=== PATIENT | female | born 1970 | race Caucasian/White ===

== ENCOUNTER 2020-03-21 10:21 | Outpatient (CLI) | payer OTHER, SELFPAY ==
[2020-03-21 11:07] LABS: Hematocrit 34.5 % (37.0-47.0); Hemoglobin 10.4 g/dL (12.0-15.0); Immature Platelet Fraction Pct 3.6 % (0.9-11.2); Mean Corpuscular HGB Conc 30.1 g/dl (32-36); Mean Corpuscular Hemoglobin 19.4 pg (26-34); Mean Corpuscular Volume 64.4 fl (80-100); Mean Platelet Volume 11.3 fl (7.4-10.4); Platelet Count Result 356 k/mm3 (150-375); Red Blood Count 5.36 M/mm3 (4.2-5.4); Red Cell Distribution Width 21.3 % (11.5-14.5); White Blood Count 8.7 K/mm3 (4.5-10.0)
[2020-03-21 11:17] LABS: Hemoglobin A1C 5.7 % (<5.7)
[2020-03-21 11:18] LABS: Alanine Aminotransferase 14 U/L (4-35); Albumin Level 3.7 g/dL (3.5-5.1); Alkaline Phosphatase 110 U/L (38-126); Aspartate Amino Transferase 20 U/L (14-36); Bilirubin,Total 0.7 mg/dL (0.2-1.3); Blood Urea Nitrogen 12 mg/dL (7-17); Calcium 8.6 mg/dL (8.4-10.2); Carbon Dioxide 30 mmol/L (22-30); Chloride 102 mmol/L (98-107); Cholesterol 139 mg/dL (0-200); Estimated Glomerular Filt Rate > 60; Glucose 100 mg/dL (65-105); HDL Direct 48 mg/dL; Potassium 4.1 mmol/L (3.4-5.0); Sodium 134 mmol/L (137-145); Triglycerides 108 mg/dL (<150)
[2020-03-21 11:28] LABS: LDL Cholesterol Direct 69 mg/dL
== END 2020-03-21 10:22 | disposition home or self-care (01) ==
LOC: ANHLAB 10:23
PROVIDERS: PCP Family Medicine; Visit Provider Nurse Practitioner Family
DX: I10 Essential (primary) hypertension (principal); R73.03 Prediabetes
CPT/HCPCS: 36415; 80053; 80061; 83036; 85027; 85055

== ENCOUNTER 2020-10-12 08:54 | Outpatient (CLI) | payer OTHER, SELFPAY ==
[2020-10-12 09:13] LABS: Hematocrit 36.8 % (37.0-47.0); Hemoglobin 11.1 g/dL (12.0-15.0); Immature Platelet Fraction Pct 4.1 % (0.9-11.2); Mean Corpuscular HGB Conc 30.2 g/dl (32-36); Mean Corpuscular Volume 62.9 fl (80-100); Platelet Count Result 407 k/mm3 (150-375); Red Blood Count 5.85 M/mm3 (4.2-5.4); Red Cell Distribution Width 22.5 % (11.5-14.5); White Blood Count 9.5 K/mm3 (4.5-10.0)
[2020-10-12 09:22] LABS: Hemoglobin A1C 5.4 % (<5.7)
[2020-10-12 09:26] LABS: Alanine Aminotransferase 14 U/L (4-35); Albumin Level 3.8 g/dL (3.5-5.1); Alkaline Phosphatase 96 U/L (38-126); Anion Gap 4 mmol/L (8-16); Aspartate Amino Transferase 30 U/L (14-36); Bilirubin,Total 0.6 mg/dL (0.2-1.3); Blood Urea Nitrogen 15 mg/dL (7-17); Calcium 9.2 mg/dL (8.4-10.2); Carbon Dioxide 30 mmol/L (22-30); Chloride 103 mmol/L (98-107); Cholesterol 151 mg/dL (0-200); Estimated Glomerular Filt Rate > 60; Glucose 102 mg/dL (65-105); HDL Direct 47 mg/dL; Potassium 4.2 mmol/L (3.4-5.0); Sodium 137 mmol/L (137-145); Triglycerides 171 mg/dL (<150)
[2020-10-12 09:37] LABS: LDL Cholesterol Direct 75 mg/dL
== END 2020-10-12 08:55 | disposition home or self-care (01) ==
LOC: ANHLAB 08:55
PROVIDERS: PCP Family Medicine; Visit Provider Nurse Practitioner Family
DX: E78.5 Hyperlipidemia, unspecified (principal); I10 Essential (primary) hypertension; R73.03 Prediabetes
CPT/HCPCS: 36415; 80053; 80061; 83036; 85027; 85055

== ENCOUNTER 2021-05-02 11:24 | Outpatient (CLI) | payer OTHER, SELFPAY ==
[2021-05-02 11:42] LABS: Basophils Absolute Auto 0.1 K/mm3 (0.0-0.1); Eosinophils Absolute Auto 0.4 K/mm3 (0-0.3); Eosinophils Percent Auto 3.3 % (0-4.4); Hematocrit 34.5 % (37.0-47.0); Hemoglobin 10.2 g/dL (12.0-15.0); Immature Granulocyte Absolute 0.03 K/mm3 (0.00-0.031); Immature Granulocyte Percent A 0.3 % (0-0.5); Immature Platelet Fraction Pct 4.3 % (0.9-11.2); Lymphocytes Absolute Auto 2.15 K/mm3 (0.9-3.2); Lymphocytes Percent Auto 19.6 % (18.3-44.2); Mean Corpuscular HGB Conc 29.6 g/dl (32-36); Mean Corpuscular Volume 60.8 fl (80-100); Monocytes Absolute Auto 0.6 K/mm3 (0.1-0.6); Monocytes Percent Auto 5.1 % (2.6-8.5); Neutrophils Absolute Auto 7.8 K/mm3 (1.3-6.7); Neutrophils Percent Auto 70.7 % (45.5-73.1); Platelet Count Result 406 k/mm3 (150-375); Red Blood Count 5.67 M/mm3 (4.2-5.4); Red Cell Distribution Width 22.1 % (11.5-14.5)
[2021-05-02 11:52] LABS: Alanine Aminotransferase 14 U/L (4-35); Albumin Level 3.9 g/dL (3.5-5.1); Alkaline Phosphatase 99 U/L (38-126); Anion Gap 6 mmol/L (8-16); Aspartate Amino Transferase 20 U/L (14-36); Bilirubin,Total 0.6 mg/dL (0.2-1.3); Blood Urea Nitrogen 12 mg/dL (7-17); Calcium 9.1 mg/dL (8.4-10.2); Carbon Dioxide 27 mmol/L (22-30); Chloride 104 mmol/L (98-107); Estimated Glomerular Filt Rate > 60; Glucose 90 mg/dL (65-110); Potassium 4.5 mmol/L (3.4-5.0); Sodium 137 mmol/L (137-145)
[2021-05-02 12:01] LABS: Hemoglobin A1C 5.6 % (<5.7)
[2021-05-02 12:11] LABS: Anisocytosis 1+ (NORMAL)
[2021-05-02 12:12] LABS: Ovalocytes 1+ (NORMAL)
[2021-05-02 12:13] LABS: Poikilocytosis 1+ (NORMAL)
== END 2021-05-02 11:25 | disposition home or self-care (01) ==
LOC: ANHLAB 11:27
PROVIDERS: PCP Family Medicine; Visit Provider Nurse Practitioner Family
DX: R73.03 Prediabetes (principal); I10 Essential (primary) hypertension
CPT/HCPCS: 36415; 80053; 83036; 85025; 85055

== ENCOUNTER → 2021-10-27 09:25 | Outpatient (CLI) | payer OTHER, SELFPAY ==
--- NOTE | ~2021-10-27 | XR_ITS ---
XR knee RT 2V DATE: 10/27/2021 10:10 INDICATION: Right knee pain TECHNIQUE: Standing AP and lateral views COMPARISON: None FINDINGS: There is tricompartment osteoarthritis, most severe at the medial compartment where there i s severe loss of joint space. There is periarticular spurring at the patellofemoral and medial and la teral compartments. No fracture or dislocation or joint effusion, periosteal reaction or bone destruction, radiopaque int ra-articular loose body or chondrocalcinosis. IMPRESSION: Tricompartment osteoarthritis, most severe at the medial compartment Reviewed, dictated and finalized at location A. IT CONTROL ASSISTANT IMPRESSION: Tricompartment osteoarthritis, most severe at the medial compartmen t
== END ==
PROVIDERS: PCP Nurse Practitioner Family; Visit Provider Nurse Practitioner Family
DX: M17.11 Unilateral primary osteoarthritis, right knee (principal)
CPT/HCPCS: 73560

== ENCOUNTER 2021-10-28 07:34 | Outpatient (CLI) | payer OTHER, SELFPAY ==
[2021-10-28 07:54] LABS: Basophils Absolute Auto 0.1 K/mm3 (0.0-0.1); Basophils Percent Auto 1.2 % (0.2-1.2); Eosinophils Absolute Auto 0.5 K/mm3 (0-0.3); Eosinophils Percent Auto 5.3 % (0-4.4); Hematocrit 31.7 % (37.0-47.0); Hemoglobin 9.5 g/dL (12.0-15.0); Immature Granulocyte Absolute 0.03 K/mm3 (0.00-0.031); Immature Granulocyte Percent A 0.3 % (0-0.5); Lymphocytes Absolute Auto 2.46 K/mm3 (0.9-3.2); Monocytes Absolute Auto 0.8 K/mm3 (0.1-0.6); Monocytes Percent Auto 7.9 % (2.6-8.5); Neutrophils Absolute Auto 5.9 K/mm3 (1.3-6.7); Neutrophils Percent Auto 60.3 % (45.5-73.1); Platelet Count Result 457 k/mm3 (150-375); Red Blood Count 5.28 M/mm3 (4.2-5.4); Red Cell Distribution Width 22.9 % (11.5-14.5); White Blood Count 9.8 K/mm3 (4.5-10.0)
[2021-10-28 08:04] LABS: Alanine Aminotransferase 14 U/L (4-35); Albumin Level 3.7 g/dL (3.5-5.1); Alkaline Phosphatase 98 U/L (38-126); Anion Gap 8 mmol/L (8-16); Aspartate Amino Transferase 21 U/L (14-36); Bilirubin,Total 0.4 mg/dL (0.2-1.3); Blood Urea Nitrogen 16 mg/dL (7-17); Calcium 9.1 mg/dL (8.4-10.2); Carbon Dioxide 27 mmol/L (22-30); Chloride 102 mmol/L (98-107); Cholesterol 141 mg/dL (0-200); Estimated Glomerular Filt Rate > 60; Glucose 112 mg/dL (65-110); HDL Direct 47 mg/dL; Potassium 4.2 mmol/L (3.4-5.0); Sodium 137 mmol/L (137-145); Triglycerides 107 mg/dL (<150)
[2021-10-28 08:16] LABS: Iron 32 ug/dL (37-170); LDL Cholesterol Direct 75 mg/dL
[2021-10-28 08:44] LABS: Platelet Estimate Adequate (Adequate)
[2021-10-28 08:45] LABS: Anisocytosis 2+ (NORMAL); Ovalocytes 2+ (NORMAL)
== END 2021-10-28 07:35 | disposition home or self-care (01) ==
PROVIDERS: PCP Nurse Practitioner Family; Visit Provider Nurse Practitioner Family
DX: D56.9 Thalassemia, unspecified (principal); E78.5 Hyperlipidemia, unspecified; I10 Essential (primary) hypertension
CPT/HCPCS: 36415; 80053; 80061; 83540; 85025

== ENCOUNTER → 2021-10-31 12:22 | Outpatient (CLI) | payer OTHER, SELFPAY ==
--- NOTE | ~2021-10-31 | MM_ITS ---
EXAMINATION: MM screening [facility] BI w gregory HISTORY: Screening mammogram TECHNIQUE: Craniocaudal and mediolateral oblique 3-D tomosynthesis images were obtained and synthetic 2-D images were generated. CAD analysis was submitted and interpreted. COMPARISON: 09/04/2016, 06/09/2015 BREAST PARENCHYMAL COMPOSITION: There are scattered areas of fibroglandular density. FINDINGS: There is no evidence of suspicious mass, calcification, or architectural distortion to sugg est malignancy in either breast. There has been no suspicious interval change. IMPRESSION: 1. No mammographic evidence of malignancy. 2. Recommend routine screening mammography in one year. BI-RADS Category 1: Negative Reviewed, dictated and finalized at location A. FOOD SHIFT LEAD
== END ==
PROVIDERS: PCP Nurse Practitioner Family; Visit Provider Obstetrics & Gynecology
DX: Z12.31 Encounter for screening mammogram for malignant neoplasm of breast (principal)
CPT/HCPCS: 77063; 77067

== ENCOUNTER 2022-01-25 08:13 | Outpatient (CLI) | payer OTHER, SELFPAY ==
--- NOTE | 2022-01-25 09:07 | ECG_ITS ---
Measurements Intervals [place] Rate: 55 P: 26 WY: 154 QRS: 27 QRSD: 85 T: 34 QT: 426 QTc: 411 Interpretive Statements SINUS BRADYCARDIA LOW QRS VOLTAGE IN PRECORDIAL LEADS [QRS DEFLECTION < 1.0 mV IN CHEST LEADS] BORDERLINE ECG COMPARED TO ECG 05/20/2019 09:41:30 HEART RATE HAS DECREASED AND PVCS NOT APPRECIATED Electronically Signed On 01-25-2022 16:54:35 CDT by Jhonny Mcgehe M.D.
[2022-01-25 09:39] LABS: Appearance Urine Clear (Clear); Bilirubin Urine Negative (Negative); Blood Urine 1+ (Negative); Color Urine Yellow (Yellow); Glucose Urine UA Negative (Negative); Ketones Urine Negative (Negative); Leukocyte Esterase Ur Negative LEU/UL (Negative); Nitrate Urine Negative (Negative); Protein Urine Negative (Negative); Specific Grav Ur 1.015 (1.001-1.035); Urobilinogen Urine 0.2 mg/dL (<2.0)
[2022-01-25 09:40] LABS: Basophils Absolute Auto 0.1 K/mm3 (0.0-0.1); Basophils Percent Auto 1.3 % (0.2-1.2); Eosinophils Absolute Auto 0.3 K/mm3 (0-0.3); Eosinophils Percent Auto 3.7 % (0-4.4); Hemoglobin 9.7 g/dL (12.0-15.0); Immature Granulocyte Absolute 0.02 K/mm3 (0.00-0.031); Immature Granulocyte Percent A 0.3 % (0-0.5); Immature Platelet Fraction Pct 4.4 % (0.9-11.2); Lymphocytes Absolute Auto 2.01 K/mm3 (0.9-3.2); Lymphocytes Percent Auto 25.5 % (18.3-44.2); Mean Corpuscular HGB Conc 29.4 g/dl (32-36); Mean Corpuscular Hemoglobin 17.9 pg (26-34); Mean Corpuscular Volume 60.9 fl (80-100); Monocytes Absolute Auto 0.7 K/mm3 (0.1-0.6); Monocytes Percent Auto 8.5 % (2.6-8.5); Neutrophils Absolute Auto 4.8 K/mm3 (1.3-6.7); Neutrophils Percent Auto 60.7 % (45.5-73.1); Platelet Count Result 435 k/mm3 (150-375); Red Blood Count 5.42 M/mm3 (4.2-5.4); Red Cell Distribution Width 23.1 % (11.5-14.5); White Blood Count 7.9 K/mm3 (4.5-10.0)
[2022-01-25 09:47] LABS: Albumin Level 3.9 g/dL (3.5-5.1); Anion Gap 7 mmol/L (8-16); Blood Urea Nitrogen 21 mg/dL (7-17); Calcium 9.4 mg/dL (8.4-10.2); Carbon Dioxide 28 mmol/L (22-30); Chloride 100 mmol/L (98-107); Estimated Glomerular Filt Rate > 60; Glucose 101 mg/dL (65-110); Hemoglobin A1C 5.1 % (<5.7); Potassium 4.2 mmol/L (3.4-5.0); Sodium 135 mmol/L (137-145)
[2022-01-25 09:48] LABS: INR 1.1; Prothrombin Time 13.6 Seconds (11.1-14.7)
[2022-01-25 09:49] LABS: Urine Cotinine NEGATIVE
[2022-01-25 09:49] LABS: Partial Thromboplastin Time 28.7 SECONDS (22.3-36.8)
[2022-01-25 09:51] LABS: Bacteria Urine Trace /hpf; Mucus Urine Rare /lpf; WBC Urine 0-3 /hpf
[2022-01-25 09:52] LABS: Add Urine Microscopic? YES
[2022-01-25 10:05] LABS: Hypochromasia 2+ (NORMAL); Platelet Estimate Adequate (Adequate)
[2022-01-25 10:06] LABS: Anisocytosis 2+ (NORMAL); Ovalocytes 2+ (NORMAL); Target Cells 1+ (NORMAL); Tear Drop Cells 1+ (NORMAL)
== END 2022-01-25 08:14 | disposition home or self-care (01) ==
LOC: ANHSURGERY 08:16
PROVIDERS: PCP Nurse Practitioner Family; Visit Provider Orthopaedic Surgery
DX: Z01.818 Encounter for other preprocedural examination (principal); M17.11 Unilateral primary osteoarthritis, right knee
CPT/HCPCS: 80048; 80307; 81001; 82040; 83036; 85025; 85055; 85610; 85730; 86850; 86900; 86901; 87081; 93005

== ENCOUNTER 2022-01-26 12:06 | Outpatient (CLI) | payer OTHER, SELFPAY ==
[2022-01-26 12:48] LABS: Basophils Absolute Auto 0.1 K/mm3 (0.0-0.1); Basophils Percent Auto 1.5 % (0.2-1.2); Eosinophils Absolute Auto 0.2 K/mm3 (0-0.3); Eosinophils Percent Auto 2.7 % (0-4.4); Hematocrit 32.8 % (37.0-47.0); Hemoglobin 9.5 g/dL (12.0-15.0); Immature Granulocyte Absolute 0.02 K/mm3 (0.00-0.031); Immature Granulocyte Percent A 0.3 % (0-0.5); Immature Platelet Fraction Pct 4.1 % (0.9-11.2); Lymphocytes Absolute Auto 2.05 K/mm3 (0.9-3.2); Lymphocytes Percent Auto 26.1 % (18.3-44.2); Mean Corpuscular Hemoglobin 18.1 pg (26-34); Mean Corpuscular Volume 62.4 fl (80-100); Monocytes Absolute Auto 0.6 K/mm3 (0.1-0.6); Monocytes Percent Auto 7.6 % (2.6-8.5); Neutrophils Absolute Auto 4.9 K/mm3 (1.3-6.7); Neutrophils Percent Auto 61.8 % (45.5-73.1); Platelet Count Result 413 k/mm3 (150-375); Red Blood Count 5.26 M/mm3 (4.2-5.4); Red Cell Distribution Width 21.9 % (11.5-14.5); White Blood Count 7.9 K/mm3 (4.5-10.0)
[2022-01-26 12:51] LABS: Platelet Estimate Increased (Adequate)
[2022-01-26 12:53] LABS: Anisocytosis 1+ (NORMAL); Hypochromasia 2+ (NORMAL); Ovalocytes 1+ (NORMAL); Target Cells 1+ (NORMAL)
[2022-01-26 12:54] LABS: Poikilocytosis 2+ (NORMAL)
[2022-01-26 14:19] LABS: Alanine Aminotransferase 19 U/L (4-35); Albumin Level 4.1 g/dL (3.5-5.1); Alkaline Phosphatase 95 U/L (38-126); Anion Gap 7 mmol/L (8-16); Aspartate Amino Transferase 24 U/L (14-36); Bilirubin,Total 0.4 mg/dL (0.2-1.3); Blood Urea Nitrogen 20 mg/dL (7-17); Calcium 9.7 mg/dL (8.4-10.2); Carbon Dioxide 27 mmol/L (22-30); Chloride 103 mmol/L (98-107); Estimated Glomerular Filt Rate > 60; Glucose 100 mg/dL (65-110); Potassium 4.4 mmol/L (3.4-5.0); Sodium 137 mmol/L (137-145)
[2022-01-26 14:23] LABS: Iron 29 ug/dL (37-170)
[2022-01-26 14:38] LABS: Percent Iron Saturation 6 % (20-50)
[2022-01-26 15:06] LABS: Ferritin 4.47 ng/mL (11.1-264)
[2022-01-26 15:27] LABS: Folic Acid > 20.0 ng/mL (2.76->20)
== END 2022-01-26 12:07 | disposition home or self-care (01) ==
PROVIDERS: PCP Nurse Practitioner Family; Visit Provider Internal Medicine Hematology & Oncology
DX: D50.9 Iron deficiency anemia, unspecified (principal)
CPT/HCPCS: 36415; 80053; 81257; 82607; 82728; 82746; 83020; 83540; 83550; 85014; 85018; 85025; 85041; 85055

== ENCOUNTER 2022-02-16 01:45 | Day surgery (SDC) | payer OTHER, SELFPAY ==
--- NOTE | 2022-02-13 11:25 | PM.IMHP ---
H&P: HPI History of Present Illness Date/Time: 02/13/22 11:25 51-year-old 2 para 2 admitted for hysteroscopy and polypectomy. This patient has had fairly heavy bleeding and told me her hemoglobin was in the 6s. And she has known fibroids and on exam in the office a large polyp or fibroid was seen extruding through the cervical os. She is offered hysteroscopic removal as well as dilatation and curettage. I also discussed ablation and her insurance company refuses so this will not be able to be performed. Risks and benefits reviewed including not exclusive of aspiration pneumonia, bleeding, transfusion, perforation injury to bowel, bladder, ureters, or other internal organs with need for open laparotomy. She received the ACOG handout entitled hysteroscopy as well as dilatation curettage respectively. She had all questions answered and asked to proceed Chief Complaint: Vaginal bleeding was pelvic mass Review of Systems Review of Systems: All systems reviewed & are unremarkable except as noted in HPI and below PMFSH Past Medical History Medical History Asthma Depression Hypertension Perioral dermatitis Prediabetes Right knee pain Thalassemia Surgical History Surgical History History of colonoscopy Family History Family History Father Family history of elevated blood lipids Mother Family history of lung cancer Other Asthma Depression Hypertension Social History Social History Smoking status: Unknown if ever smoked Smoking end date: 04/06/86 Alcohol intake: unknown Substance use: current Substance use type: marijuana Other substance usage details: OCCAS MARIJUANA Additional living arrangements comments: [facility] 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 @ [employer] Gender identity (if verbalized by the patient): Female Spiritual care concerns: No Meds Home Medications and Allergies Home Medications Medication Instructions Recorded Confirmed Type escitalopram oxalate 20 mg tablet 20 mg PO QAM 09/25/19 01/25/22 History cholecalciferol (vitamin D3) 50 50 mcg PO DAILY 10/27/21 01/25/22 History mcg (2,000 unit) capsule antiarthritic combination no.2 900 1,800 mg PO DAILY tablet 12/28/21 01/25/22 History mg tablet folic acid 1 mg tablet 1 mg PO DAILY 12/28/21 01/25/22 History amlodipine 2.5 mg PO QAM 01/25/22 01/25/22 History irbesartan-hydrochlorothiazide 1 tablet PO QAM 01/25/22 01/25/22 History norgestimate-ethinyl estradiol 1 tablet PO DAILY 02/09/22 History 0.18 mg/0.215mg/0.25mg-35 mcg(28)tablet Allergies Allergy/AdvReac Type Severity Reaction Status Date / Time animal dander Allergy Unknown Sneezing Verified 02/09/22 14:56 house dust Allergy Unknown Sneezing Verified 02/09/22 14:56 mold Allergy Unknown Unknown Verified 02/09/22 14:56 Exam Const: General: no acute distress Eyes: General: appearance normal, both eyes and all related structures Neck: Neck: supple and no JVD Thyroid: thyroid normal Resp: Effort & Inspection: normal respiratory effort Auscultation: clear to auscultation bilaterally Cardio: Rate: regular rate Rhythm: regular rhythm GI: Inspection: non-distended GI Palp: Yes Soft to palpation, No Tenderness to palpation present (GI) and No Guarding due to palpation present (GI) Auscultation: normal bowel sounds : External Female Exam: normal external appearance Speculum Exam - Vagina: normal appearance of the vagina and vaginal bleeding Speculum Exam - Cervix: Cervical lesion present (Polypoid mass noted extruding through the cervix) Bimanual exam- vagina & uterus: enlarged Skin: General skin exam: no rashes or lesions noted Extrem: General: normal to inspection and no edema
[2022-02-15 09:28] VITALS: BMI 36.0
--- NOTE | 2022-02-15 09:33 | SUR.PREOP ---
Report to the Outpatient Waiting Room, entrance under the green pavilion located off [facility], at time 1030 on date 02/16/22 . OR Time: 1230 . - You and your visitor will be asked a series of questions to screen for COVID 19 for your protection. - Only one visitor is allowed at this time. - The patient visitor is requested to leave or wait in car when not with patient. - A mask is required within the hospital. Patients may have clear liquids (water, carbonated beverages, clear teas, apple juice) until 3 hours prior to surgery with a maximum of 20 ounces. - No food from midnight until time of surgery - Infants may have breast milk until 4 hours before surgery, infant formula 6 hours prior to surgery. - Children will be allowed to drink immediately following surgery. If applicable, please bring a bottle or sippy cup to assist with drinking. Juice, water, soda, and popsicles are readily available. For infants on formula, please bring formula the day of surgery. Pacifiers are allowed. Take the following medications with a SIP of water the morning of surgery: _amlodipine,lexapro Medications to discontinue per physician vitamins Date to take last dose___02/13/22 Please no make-up, nail japanese, hairspray, perfume, deodorant, or body powder the day of surgery. No jewelry (including any body piercings) or valuables the day of surgery, leave them at home. Please take a shower or bath the night before, or the morning of, surgery with an antibacterial soap. Wear comfortable, loose fitting clothing. Children are encouraged to wear pajamas. - Jewelry must be removed prior to entering the operating room. Rings and piercings that are not removed may be cut off. - The hospital will not accept responsibility for valuables. - Please leave all valuables, including medications, at home the day of surgery. If you are going home after surgery, a licensed emergency medical technician/driver must drive you home. - NO public transportation without another adult. - We recommend that an adult stay with you for 24 hours following discharge. - We also recommend that you do not drive, make important decision, drink alcoholic beverages, or take any drugs that were not prescribed by your health care provider for at least 24 hours after your discharge time. For Pediatric surgeries, we recommend two adults accompany the child home (only one inside the building at this time). Follow any additional instructions given to you from your surgeon. If you or anyone in your household have experienced Covid symptoms in the past week, please notify your surgeon or the nurse liaison at the phone number below for possible testing. Telephone instructions given to __edda browne and asked if any additional questions and then verbalized understanding. Patient advised to call surgeon office or pre surgery nurse liaison [phone] if any additional questions.
--- NOTE | 2022-02-16 07:19 | WPDHPUPDATE1 ---
History and Physical Update Update Date/Time: 02/16/22 07:19 History and Physical has been reviewed, including an updated exam of the patient. There are NO changes in the patient's condition. Risks, benefits, and alternatives have been discussed and questions answered. Patient agrees to proceed with procedure.
[2022-02-16 11:30] VITALS: BP 136/84; PULSE 56; RESP 18; TEMP 36.6; O2SAT 100
[2022-02-16] MEDS: LACTATED RINGERS 1,000 ML 30 ML IV CONT (11:30)
[2022-02-16] MEDS: ACETAMINOPHEN 500 MG TABLET 1000 MG PO (11:45)
--- NOTE | 2022-02-16 12:01 | P.PNAN_ITS ---
Anes - Initial Pre Proc Eval Procedure: Operation Date: 02/16/22 12:30 Proposed Procedures p Hysteroscopy, Dilation and Curettage with Polypectomy - Buddy Mackey MD Date/Time: 02/16/22 12:01 Surgeon: Buddy Mackey MD Pre Op Diagnosis: uterine polyp, irregular bleeding Patient Data Age: 51 Gender: F Height: 1.6 m Weight: 92.27 kg Allergies Allergy/AdvReac Type Severity Reaction Status Date / Time animal dander Allergy Mild Sneezing Verified 02/15/22 09:13 house dust Allergy Mild Sneezing Verified 02/15/22 09:13 mold Allergy Mild Watery Eye Verified 02/15/22 09:13 Home Medications Medication Instructions Recorded Confirmed Type escitalopram oxalate 20 mg tablet 20 mg PO QAM 09/25/19 02/15/22 History cholecalciferol (vitamin D3) 50 50 mcg PO DAILY 10/27/21 02/15/22 History mcg (2,000 unit) capsule antiarthritic combination no.2 900 1,800 mg PO DAILY tablet 12/28/21 02/15/22 History mg tablet folic acid 1 mg tablet 1 mg PO DAILY 12/28/21 02/15/22 History amlodipine 2.5 mg PO QAM 01/25/22 02/15/22 History irbesartan-hydrochlorothiazide 1 tablet PO QAM 01/25/22 02/15/22 History hydrocodone-acetaminophen 1 tablet PO Q4H PRN #30 tablet 02/16/22 Rx Patient hx anesthesia problems: none Family hx anesthesia problems: none Results Review: All pre-operative results and documents have been reviewed as part of the pre-operative evaluation. [facility] Past Medical History Medical History Asthma Depression Hypertension Perioral dermatitis Prediabetes Right knee pain Thalassemia Surgical History Surgical History History of colonoscopy Family History Family History Father Family history of elevated blood lipids Mother Family history of lung cancer Other Asthma Depression Hypertension Social History Social History Smoking status: Never smoker Smoking end date: 04/06/86 Alcohol intake: former Substance use: current Substance use type: marijuana Other substance usage details: smoking occasionally Living arrangements: with family Additional living arrangements comments: [place] 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 @ [employer] Gender identity (if verbalized by the patient): Female Spiritual care concerns: No Anes - Eval Final PreProcedure Day of Procedure 02/16/22 12:01 Patient weight: obese Heart: regular rate and rhythm Lungs: clear to auscultation Airway: Mallampati scale class II Neurological: alert and oriented Last oral intake: >/= 8 hours ASA classification: III Emergent: no Anesthetic plan: proceed Anesthesia type and monitoring: general GIVS and standard monitoring Results Review: All pre-operative results and documents have been reviewed as part of the pre-operative evaluation. Informed Consent: The patient's anesthetic plan and its attendant risks and benefits were discussed with the patient/family/POA. Questions were solicited and answers provided to the satisfaction of the patient/family/POA.
[2022-02-16 12:07] LABS: Hematocrit 34.8 % (37.0-47.0); Hemoglobin 10.2 g/dL (12.0-15.0)
--- NOTE | 2022-02-16 13:01 | P.OP_ITS ---
Procedure Note - Detailed Date of Procedure 02/16/22 Pre-op Diagnosis uterine polyp, irregular bleeding Post-op Diagnosis Same Procedure Performed Hysteroscopy/myomectomy/dilatation curettage Surgeon Buddy Mackey MD Anesthesia MAC and Local Indications Sh 51-year-old female with excessive heavy bleeding and no fibroids Findings Multiple endometrial fibroids Description of Procedure The patient was prepped and draped in the normal sterile fashion placed in the dorsal lithotomy position. Under excellent IV sedation weighted speculum placed posterior fornix vagina. Anterior lip of the cervix grasped with single-tooth tenaculum. 2.5cc of 1% xylocaine anesthesia placed at 2, 4, 8, 10:00 a.m. of the cervix. Uterus sounded to 12cm. Serial dilatation fragment that performed followed by passes the 5mm visualizing hysteroscope using normal saline as visualizing medium. Multiple submucosal fibroids were seen the largest measuring about the size of a golf ball was grasped and twisted and removed wit hout difficulty. Couple other small fibroids were noted in grasped and removed. The uterus still was large and irregular and the uterus scraped over the entire 3 sent 160? of good grating sound was heard. The instruments removed all were accounted for. All sponge, needle, instrument counts were correct. There were no immediate complications Estimated Blood Loss 25 Drains No Packing No Pathology Yes Complications No immediate complications Condition Stable Disposition PACU
[2022-02-16 13:05] VITALS: BP 113/62; PULSE 57; O2SAT 92
[2022-02-16 13:30] VITALS: BP 138/76; PULSE 54; RESP 16
== END 2022-02-16 13:40 | disposition home or self-care (01) ==
PROVIDERS: PCP Nurse Practitioner Family; Visit Provider Obstetrics & Gynecology
PROC: 0U5B8ZZ Destruction of Endometrium, Via Natural or Artificial Opening Endoscopic (ICD-10-PCS; CPT 58563; principal; 2022-02-16 12:30)
DX: N93.9 Abnormal uterine and vaginal bleeding, unspecified (principal); D25.0 Submucous leiomyoma of uterus; I10 Essential (primary) hypertension; J45.909 Unspecified asthma, uncomplicated; F32.9 Major depressive disorder, single episode, unspecified; R73.03 Prediabetes; F12.90 Cannabis use, unspecified, uncomplicated; E66.9 Obesity, unspecified; Z68.35 Body mass index [BMI] 35.0-35.9, adult
CPT/HCPCS: 58561; 36415; 80048; 80307; 81001; 82040; 83036; 85014; 85018; 85025; 85055; 85610; 85730; 86850; 86900; 86901; 87081; 88305; 93005; A9270; J1100; J2250; J2405; J2704; J3010; J7030; J7120

== ENCOUNTER 2022-04-10 13:28 | Outpatient (CLI) | payer OTHER, SELFPAY ==
[2022-04-10 13:51] LABS: Basophils Absolute Auto 0.1 K/mm3 (0.0-0.1); Basophils Percent Auto 1.1 % (0.2-1.2); Eosinophils Absolute Auto 0.2 K/mm3 (0-0.3); Eosinophils Percent Auto 2.5 % (0-4.4); Hematocrit 33.6 % (37.0-47.0); Hemoglobin 10.3 g/dL (12.0-15.0); Immature Granulocyte Absolute 0.02 K/mm3 (0.00-0.031); Immature Granulocyte Percent A 0.2 % (0-0.5); Immature Platelet Fraction Pct 5.1 % (0.9-11.2); Lymphocytes Absolute Auto 2.53 K/mm3 (0.9-3.2); Lymphocytes Percent Auto 29.9 % (18.3-44.2); Mean Corpuscular HGB Conc 30.7 g/dl (32-36); Mean Corpuscular Hemoglobin 19.1 pg (26-34); Mean Corpuscular Volume 62.2 fl (80-100); Monocytes Absolute Auto 0.5 K/mm3 (0.1-0.6); Neutrophils Absolute Auto 5.1 K/mm3 (1.3-6.7); Neutrophils Percent Auto 60.3 % (45.5-73.1); Platelet Count Result 332 k/mm3 (150-375); Red Cell Distribution Width 24.8 % (11.5-14.5); White Blood Count 8.5 K/mm3 (4.5-10.0)
[2022-04-10 14:01] LABS: Anion Gap 6 mmol/L (8-16); Blood Urea Nitrogen 27 mg/dL (7-17); Carbon Dioxide 27 mmol/L (22-30); Chloride 101 mmol/L (98-107); Estimated Glomerular Filt Rate > 60; Glucose 100 mg/dL (65-110); Potassium 3.9 mmol/L (3.4-5.0); Sodium 134 mmol/L (137-145)
[2022-04-10 14:19] LABS: Platelet Estimate Adequate (Adequate)
[2022-04-10 14:20] LABS: Anisocytosis 1+ (NORMAL); Microcytosis 1+ (NORMAL); Ovalocytes 1+ (NORMAL); Target Cells 1+ (NORMAL)
== END 2022-04-10 13:29 | disposition home or self-care (01) ==
PROVIDERS: Anesthesiology; PCP Nurse Practitioner Family; Visit Provider Obstetrics & Gynecology
DX: N94.6 Dysmenorrhea, unspecified (principal); T50.2X5A Adverse effect of carbonic-anhydrase inhibitors, benzothiadiazides and other diuretics, initial encounter
CPT/HCPCS: 36415; 80048; 85025; 85055; 86850; 86900; 86901

== ENCOUNTER 2022-04-13 01:26 | Day surgery (SDC) | payer OTHER, SELFPAY ==
[2022-04-10 09:28] VITALS: BMI 32.8
--- NOTE | 2022-04-10 09:33 | PC.NURSE ---
Report to the Outpatient Waiting Room, entrance under the green pavilion located off [facility], at time ___07:30____ on date __4-2-14 . OR Time: 09:30___. - You and your visitor will be asked a series of questions to screen for COVID 19 for your protection. - Only one visitor is allowed at this time. - The patient visitor is requested to leave or wait in car when not with patient. - A mask is required within the hospital. Patients may have clear liquids (water, carbonated beverages, clear teas, apple juice) until 3 hours prior to surgery with a maximum of 20 ounces. NOTHING TO DRINK AFTER 6:30 AM - No food from midnight until time of surgery - Infants may have breast milk until 4 hours before surgery, infant formula 6 hours prior to surgery. - Children will be allowed to drink immediately following surgery. If applicable, please bring a bottle or sippy cup to assist with drinking. Juice, water, soda, and popsicles are readily available. For infants on formula, please bring formula the day of surgery. Pacifiers are allowed. Take the following medications with a SIP of water the morning of surgery: ____AMPLODIPINE, LEXAPRO Medications to discontinue per physician VITAMIN D Date to take last dose Please no make-up, nail khmer, hairspray, perfume, deodorant, or body powder the day of surgery. No jewelry (including any body piercings) or valuables the day of surgery, leave them at home. Please take a shower or bath the night before, or the morning of, surgery with an antibacterial soap. Wear comfortable, loose fitting clothing. Children are encouraged to wear pajamas. - Jewelry must be removed prior to entering the operating room. Rings and piercings that are not removed may be cut off. - The hospital will not accept responsibility for valuables. - Please leave all valuables, including medications, at home the day of surgery. If you are going home after surgery, a licensed funeral limousine driver must drive you home. - NO public transportation without another adult. - We recommend that an adult stay with you for 24 hours following discharge. - We also recommend that you do not drive, make important decision, drink alcoholic beverages, or take any drugs that were not prescribed by your health care provider for at least 24 hours after your discharge time. For Pediatric surgeries, we recommend two adults accompany the child home (only one inside the building at this time). Follow any additional instructions given to you from your surgeon. If you or anyone in your household have experienced Covid symptoms in the past week, please notify your surgeon or the nurse liaison at the phone number below for possible testing. Telephone instructions given to ___PATIENT and asked if any additional questions and then verbalized understanding. Patient advised to call surgeon office or pre surgery nurse liaison [phone] if any additional questions.
--- NOTE | 2022-04-11 07:23 | PM.IMHP ---
H&P: HPI History of Present Illness Date/Time: 04/11/22 07:23 Chief Complaint: Bleeding Narrative: This is a 52-year-old female with known uterine fibroids/whose had benign findings by hysteroscopic examination. She has multiple uterine fibroids and opts for robotic hysterectomy and bilateral salpingectomy risks and benefits reviewed including but exclusive of aspiration pneumonia, bleeding, transfusion, perforation injury to bowel, bladder, ureter, or other internal organs with the need for open laparotomy. She received the ACOG handout entitled hysterectomy. To receive the [place] handout. She had all questions answered. She asked to proceed PMFSH Past Medical History Medical History Asthma Depression Hypertension Perioral dermatitis Prediabetes Right knee pain Thalassemia Surgical History Surgical History History of colonoscopy Family History Family History Father Family history of elevated blood lipids Mother Family history of lung cancer Other Asthma Depression Hypertension Social History Social History Smoking packs per day: 0.5 Smoking cigarettes per day: 10.0 Years smoked: 2 Smoking pack-years: 1.00 Smoking status: Former smoker Tobacco type: cigarettes Smoking end date: 10/07/83 Alcohol intake: former Drinks per week: 15 Alcohol use details: STOPPED DRINKING OCTOBER 2021 Substance use: current Substance use type: marijuana Other substance usage details: smoking occasionally Last use: 04-06-22 Additional living arrangements comments: [facility] 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 @ [employer] Gender identity (if verbalized by the patient): Female Spiritual care concerns: No Meds Home Medications and Allergies Home Medications Medication Instructions Recorded Confirmed Type escitalopram oxalate 20 mg tablet 20 mg PO QAM 09/25/19 04/10/22 History (Lexapro) cholecalciferol (vitamin D3) 50 50 mcg PO DAILY 10/27/21 04/10/22 History mcg (2,000 unit) capsule antiarthritic combination no.2 900 1,800 mg PO DAILY 12/28/21 04/10/22 History mg tablet (glucosamine-chondroitin) amlodipine 2.5 mg tablet 2.5 mg PO QAM 01/25/22 04/10/22 History irbesartan 300 1 tablet PO QAM 01/25/22 04/10/22 History mg-hydrochlorothiazide 12.5 mg tablet Allergies Allergy/AdvReac Type Severity Reaction Status Date / Time animal dander Allergy Mild Sneezing Verified 04/10/22 09:22 house dust Allergy Mild Sneezing Verified 04/10/22 09:22 mold Allergy Mild Watery Eye Verified 04/10/22 09:22 Exam : External Female Exam: normal external appearance Speculum Exam - Vagina: normal appearance of the vagina Speculum Exam - Cervix: normal appearance of the cervix Bimanual exam- vagina & uterus: enlarged Bimanual Exam- Adnexa, other: normal adnexae Assessment and Plan Assessment and plan (1) Anemia: Code(s): D64.9 - Anemia, unspecified Status: Acute (2) Vaginal bleeding: Code(s): N93.9 - Abnormal uterine and vaginal bleeding, unspecified Status: Acute (3) Enlarged uterus: Code(s): N85.2 - Hypertrophy of uterus Status: Acute Plan Robotic total vaginal hysterectomy and bilateral salpingectomy
[2022-04-13] VITALS (17 sets, daily range): BP systolic 110–144; BP diastolic 60–75; PULSE 45–77; RESP 14–18; TEMP 36.1–37.1; O2SAT 93–100
--- NOTE | 2022-04-13 06:28 | WPDHPUPDATE1 ---
History and Physical Update Update Date/Time: 04/13/22 06:28 History and Physical has been reviewed, including an updated exam of the patient. There are NO changes in the patient's condition. Risks, benefits, and alternatives have been discussed and questions answered. Patient agrees to proceed with procedure.
[2022-04-13] MEDS: ACETAMINOPHEN 500 MG TABLET 1000 MG PO (06:44)
[2022-04-13] MEDS: LACTATED RINGERS 1,000 ML 30 ML IV CONT ×2 (07:10→08:41)
[2022-04-13] MEDS: KETOROLAC 15 MG/ML VIAL (*BKC) IV PUSH (07:11)
--- NOTE | 2022-04-13 07:12 | WPDANESEPPF ---
Anes - Initial Pre Proc Eval Procedure: Operation Date: 04/13/22 07:30 Proposed Procedures p Robotic Assisted Total Vaginal Hysterectomy with Bilateral Salpingectomy, Possible Bilateral Salpingo-Oophorectomy - Buddy Mackey MD Date/Time: 04/13/22 07:12 Surgeon: Buddy Mackey MD Pre Op Diagnosis: exc. bleeding, anemia, dysmenorrhea, pelvic pain Patient Data Age: 52 Gender: F Height: 1.6 m Weight: 81.4 kg Last Vital Signs Temp 98.4 F 04/13/22 06:47 Pulse 60 04/13/22 06:47 Resp 16 04/13/22 06:47 BP 110/66 04/13/22 06:47 Pulse Ox 100 04/13/22 06:47 O2 Del Method Room Air 04/13/22 06:47 Allergies Allergy/AdvReac Type Severity Reaction Status Date / Time animal dander Allergy Mild Sneezing Verified 04/13/22 06:38 house dust Allergy Mild Sneezing Verified 04/13/22 06:38 mold Allergy Mild Watery Eye Verified 04/13/22 06:38 Home Medications Medication Instructions Recorded Confirmed Type escitalopram oxalate 20 mg tablet 20 mg PO QAM 09/25/19 04/13/22 History (Lexapro) cholecalciferol (vitamin D3) 50 50 mcg PO DAILY 10/27/21 04/13/22 History mcg (2,000 unit) capsule antiarthritic combination no.2 900 1,800 mg PO DAILY 12/28/21 04/13/22 History mg tablet (glucosamine-chondroitin) amlodipine 2.5 mg tablet 2.5 mg PO QAM 01/25/22 04/13/22 History irbesartan 300 1 tablet PO QAM 01/25/22 04/13/22 History mg-hydrochlorothiazide 12.5 mg tablet hydrocodone 5 mg-acetaminophen 325 1 tablet PO Q4H PRN pain #30 tabs 04/13/22 Rx mg tablet Patient hx anesthesia problems: none Family hx anesthesia problems: none Results Review: All pre-operative results and documents have been reviewed as part of the pre-operative evaluation. [facility] Past Medical History Medical History Asthma Depression Hypertension Perioral dermatitis Prediabetes Right knee pain Thalassemia Surgical History Surgical History History of colonoscopy Family History Family History Father Family history of elevated blood lipids Mother Family history of lung cancer Other Asthma Depression Hypertension Social History Social History Smoking packs per day: 0.5 Smoking cigarettes per day: 10.0 Years smoked: 2 Smoking pack-years: 1.00 Smoking status: Former smoker Tobacco type: cigarettes Smoking end date: 10/07/83 Alcohol intake: former Drinks per week: 15 Alcohol use details: STOPPED DRINKING OCTOBER 2021 Substance use: current Substance use type: marijuana Other substance usage details: smoking occasionally Last use: 04-06-22 Living arrangements: with family Additional living arrangements comments: [place] 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 Informed Consent: The patient's anesthetic plan and its attendant risks and benefits were discussed with the patient/family/POA. Questions were solicited and answers provided to the satisfaction of the patient/family/POA.
[2022-04-13] MEDS: ceFAZolin 2 GM/D5W 50 ML 2 GM/50 ML BAG IVPB (07:20)
--- NOTE | 2022-04-13 08:25 | P.OP_ITS ---
Procedure Note - Detailed Date of Procedure 04/13/22 Pre-op Diagnosis exc. bleeding, anemia, dysmenorrhea, pelvic pain Post-op Diagnosis Same Procedure Performed Robotic total vaginal hysterectomy and bilateral salpingo-oophorectomy Surgeon Buddy Mackey MD Anesthesia General Indications This is a 52-year-old female with symptomatic uterine fibroids Findings Enlarged fibroid uterus. Second-degree prolapse. Normal-appearing ovaries and tubes Description of Procedure The patient was prepped draped in normal sterile fashion placed in the dorsal lithotomy position. Under excellent general endotracheal anesthesia weighted speculum placed in posterior fornix vagina. Anterior lip of the cervix grasped with single-tooth tenaculum. Uterus sounded to 10cm. Serial dilatation with fragmented dilators performed followed by passage of the number 10 OBI and 3. 0.5 cold cup. Next the 16 [place] catheter was placed and bladder the weighted speculum was removed. Gloves were changed A supraumbilical incision made the Veress needle passed in the abdomen. Abdomen filled with CO2 gas [id number]. The 8mm trocar advanced in the abdomen. Downside visualized no injury seen. Patient placed in Trendelenburg and right left lateral quadrant incisions made. 8mm trocars advanced under direct visualization assuring no injury. A right upper quadrant incision made the 8mm trocar advanced under direct visualization assuring no injury. The robot was docked. Attention was turned to the console. The left round ligament was grasped, burned, cut. Anteriorly a bladder flap was formed by sharply dissecting the peritoneum and reflecting the bladder caudally to the opposite round ligament which was clamped, burned, cut. Next the left infundibulopelvic structure was skeletonized to remove the left ovary tube clamped, burned, cut and brought to the level of previously cut round ligament. Removing the right ovary and tube the right infundibulopelvic structure was skeletonized. This was clamped, burn ed, cut and brought to the level of previously cut round ligament. Next the cardinal broad ligaments on left were serially skeletonized. These were clamped, burned, cut until of view uterine vessels could be seen on the left. These large and tortuous vessels were individually clamped, burned, cut. In like fashion the cardinal broad ligaments on the right were serially skeletonized. They were clamped, burned, cut until the uterine vessels could be seen. The uterine vessels were then clamped, burned, cut. A excellent blanching of the cervix the cervix and uterus were seen. A colpotomy incision made in the cervix uterus ovaries and tubes removed through the vagina. Blood loss was estimated about 25cc to that point. The vagina was closed with continuous running 0V lock from lateral edge to lateral edge back to the midline. Irrigation undertaken to clear and pedicles appeared dry per [place] term was placed on the raw surface area. The robot was then undocked. The gas removed from the abdomen. The trocars then removed from the abdomen. The incisions closed with 4-0 Monocryl and glue. The patient went to recovery in satisfactory condition. All sponge, needle, instrument counts were correct. There were no immediate complications noted Estimated Blood Loss 25 Drains No Packing No Pathology Yes Complications No immediate complications Condition Stable Disposition PACU
--- NOTE | 2022-04-13 09:47 | SUR.PHASEI ---
Patient has met criteria for the floor but no rooms are available at this time. Patient is being held in PACU at this time.
--- NOTE | 2022-04-13 12:05 | PC.NURSE ---
This patient, Destiny Conley, was admitted to OB 2nd Floor Room 282-00. Patient/family oriented to hospital policies and general routines including ID bracelet, bed and alarms, visiting hours, pain management, procedures, bathroom and other care routines, personal items, smoking policy, room service/diet, and visiting hours. Information on how to activate the Rapid Response Team has been discussed. Patient/Family are encouraged to report perceived risks to care and to ask questions if they do not understand what they are told or what they should do.
[2022-04-13] MEDS: DOCUSATE SODIUM 100 MG CAPSULE PO (13:20)
[2022-04-13] MEDS: DEXTROSE 5%/LACTATED RINGERS 1,000 ML 125 ML IV CONT (13:20)
[2022-04-13] MEDS: ENOXAPARIN 40 MG/0.4 ML SYRINGE SUB-Q (13:24)
[2022-04-13] MEDS: IBUPROFEN 600 MG TABLET PO (15:30)
[2022-04-14 04:37] VITALS: BP 122/67; PULSE 65; RESP 16; TEMP 36.5
[2022-04-14 05:22] LABS: Basophils Absolute Auto 0.1 K/mm3 (0.0-0.1); Basophils Percent Auto 0.6 % (0.2-1.2); Eosinophils Absolute Auto 0.2 K/mm3 (0-0.3); Eosinophils Percent Auto 1.3 % (0-4.4); Hematocrit 31.8 % (37.0-47.0); Immature Granulocyte Absolute 0.06 K/mm3 (0.00-0.031); Immature Granulocyte Percent A 0.5 % (0-0.5); Immature Platelet Fraction Pct 5.1 % (0.9-11.2); Lymphocytes Absolute Auto 2.98 K/mm3 (0.9-3.2); Lymphocytes Percent Auto 24.3 % (18.3-44.2); Mean Corpuscular HGB Conc 31.4 g/dl (32-36); Mean Corpuscular Hemoglobin 19.2 pg (26-34); Monocytes Absolute Auto 0.9 K/mm3 (0.1-0.6); Monocytes Percent Auto 7.2 % (2.6-8.5); Neutrophils Absolute Auto 8.1 K/mm3 (1.3-6.7); Neutrophils Percent Auto 66.1 % (45.5-73.1); Platelet Count Result 273 k/mm3 (150-375); Red Blood Count 5.21 M/mm3 (4.2-5.4); Red Cell Distribution Width 24.1 % (11.5-14.5); White Blood Count 12.3 K/mm3 (4.5-10.0)
[2022-04-14 05:53] LABS: Anisocytosis 1+ (NORMAL); Hypochromasia 1+ (NORMAL); Ovalocytes 1+ (NORMAL); Platelet Estimate Adequate (Adequate); Poikilocytosis 1+ (NORMAL)
--- NOTE | 2022-04-14 06:47 | P.DS_ITS ---
DS: Admitting Diagnosis Discharge Date Admitting Diagnosis Symptomatic uterine fibroids with anemia DS: Discharge Diagnosis Discharge Diagnosis (1) Enlarged uterus: Code(s): N85.2 - Hypertrophy of uterus Status: Acute (2) Vaginal bleeding: Code(s): N93.9 - Abnormal uterine and vaginal bleeding, unspecified Status: Acute (3) Anemia: Code(s): D64.9 - Anemia, unspecified Status: Acute DS: Summary Hospital Course Hospital Course: The patient was admitted for robotic total vaginal hysterectomy and bilateral salpingo-oophorectomy. Her hospital course was unremarkable. She remained afebrile. She was up, voiding without difficulty, eating regular diet, ambulating, in general without complaints Time Spent with Patient Time attestation: Total time spent providing and/or coordinating discharge services: DS: Data Data Completed and Pending Pending studies at discharge: Pending at discharge 04/13/22 08:14 Surgical [PTH] Routine Labs on day of discharge: Labs from last 24 hours 04/14/22 04:34 WBC 12.3 H RBC 5.21 Hgb 10.0 L Hct 31.8 L MCV 61.0 L MCH 19.2 L MCHC 31.4 L RDW 24.1 H Plt Count 273 MPV TNP Immature Gran % (Auto) 0.5 Neut % (Auto) 66.1 Lymph % (Auto) 24.3 [place] % (Auto) 7.2 Eos % (Auto) 1.3 Baso % (Auto) 0.6 Lymph # (Auto) 2.98 [place] # (Auto) 0.9 H Eos # (Auto) 0.2 Baso # (Auto) 0.1 Abs Immat Gran (auto) 0.06 H Absolute Neuts (auto) 8.1 H Absolute Nucleated RBC 0.0 Nucleated RBC % 0.0 Platelet Estimate Adequate % Immature Plt Fraction 5.1 Hypochromasia 1+ Poikilocytosis 1+ Anisocytosis 1+ Ovalocytes 1+ Discharge Plan Discharge Patient Disposition: Home, Self-Care Stand Alone Forms: General Discharge Instructions Follow-up/Referrals: Buddy Bowling MD [Physician] - Discharge Medications: New hydrocodone-acetaminophen 5-325 mg tablet 1 tablet PO Q4H PRN (Reason: pain) Qty: 30 0RF Continued escitalopram oxalate [Lexapro] 20 mg tablet 20 mg PO QAM glucosamine-chondroitin 900 mg tablet 1,800 mg PO DAILY Label Comments: 2 tabs/daily cholecalciferol (vitamin D3) 50 mcg (2,000 unit) capsule 50 mcg PO DAILY amlodipine 2.5 mg tablet 2.5 mg PO QA irbesartan-hydrochlorothiazide 300-12.5 mg tablet 1 tablet PO QAM
--- NOTE | 2022-04-14 06:49 | PM.GYNPNOP ---
ENERGY DIRECTOR - A/P Assessment and plan (1) Enlarged uterus: Code(s): N85.2 - Hypertrophy of uterus Status: Acute (2) Vaginal bleeding: Code(s): N93.9 - Abnormal uterine and vaginal bleeding, unspecified Status: Acute (3) Anemia: Code(s): D64.9 - Anemia, unspecified Status: Acute Postoperative Procedures: Procedures Operation Date: 04/13/22 07:30 Actual Procedure Side Surgeon p Robotic Assisted Total Vaginal Hysterectomy with Bilateral Salpingo-Oophorectomy Bilateral Buddy Mackey MD Postoperative day: 1 Postoperative status: doing well Postoperative plan: routine post-op care, see orders, advance diet and discharge Time Spent With Patient Time: Total time spent is greater than 50% in coordination of care (as documented) at patient's floor/unit and/or counseling patient: Time with patient: less than 15 minutes ENERGY DIRECTOR- PN:Subj Post-Op Subjective Date/time seen: 04/14/22 06:49 Subjective: patient has no complaints, patient desires discharge, pain is well controlled and patient is tolerating oral intake ENERGY DIRECTOR - PN: Obj Data Vital Signs Vital Signs: Vital Signs - 24 hr 04/13/22 08:41 04/13/22 08:55 04/13/22 09:10 Temperature 97.0 F L 97.9 F Pulse Rate 74 68 58 L Respiratory Rate 18 14 18 Blood Pressure 133/61 133/62 127/66 Pulse Oximetry 97 100 98 Oxygen Delivery Simple Face Mask Simple Face Mask Simple Face Mask Oxygen Flow Rate 8 8 8 04/13/22 09:25 04/13/22 09:40 04/13/22 10:10 Temperature 98.1 F Pulse Rate 48 L 47 L 49 L Respiratory Rate 14 14 14 Blood Pressure 141/62 H 131/65 119/64 Pulse Oximetry 98 96 94 Oxygen Delivery Nasal Cannula Nasal Cannula Nasal Cannula Oxygen Flow Rate 2 2 2 04/13/22 10:40 04/13/22 11:10 04/13/22 11:40 Temperature Pulse Rate 54 L 56 L 54 L Respiratory Rate 14 14 14 Blood Pressure 123/63 117/61 120/60 Pulse Oximetry 93 94 94 Oxygen Delivery Nasal Cannula Nasal Cannula Nasal Cannula Oxygen Flow Rate 2 2 2 04/13/22 12:10 04/13/22 12:39 04/13/22 13:10 Temperature Pulse Rate 77 53 L Respiratory Rate 18 14 Blood Pressure 124/75 123/70 Pulse Oximetry 99 100 99 Oxygen Delivery Nasal Cannula Nasal Cannula Nasal Cannula Oxygen Flow Rate 2 2 2 04/13/22 12:55 04/13/22 18:48 04/13/22 19:40 Temperature 97.8 F 98.2 F Pulse Rate 53 L 50 L Respiratory Rate 16 16 Blood Pressure 144/74 H 122/64 Pulse Oximetry 100 100 97 Oxygen Delivery Room Air Oxygen Flow Rate 04/13/22 19:40 04/13/22 22:50 04/14/22 04:37 Temperature 98.8 F 97.7 F Pulse Rate 45 L 65 Respiratory Rate 16 16 Blood Pressure 142/74 H 122/67 Pulse Oximetry 99 Oxygen Delivery Room Air Oxygen Flow Rate Intake/Output Intake/Output: Intake & Output 04/11/22 04/12/22 04/13/22 04/14/22 23:59 23:59 23:59 23:59 Intake Total 1650 500 Output Total 1530 500 Balance 120 0 Meds/Results Medications: Active Medications Generic Name Dose Route Start Last Admin Trade Name Freq PRN Reason Stop Dose Admin Hydrocodone Bitart/Acetaminophen 1 tab 04/13/22 12:44 Hydrocodone/Acetaminophen (*Crx) 5-325 Mg Tablet PO Q3H PRN Pain Rated 5 or Less Hydrocodone Bitart/Acetaminophen 1 tab 04/13/22 12:44 Hydrocodone/Acetaminophen (*Crx) 10-325 Mg Tablet PO Q3H PRN Pain Rated 6 or Greater Docusate Sodium 100 mg 04/13/22 12:44 04/13/22 19:47 Docusate Sodium 100 Mg Capsule PO Not Given BID TIARRA Enoxaparin Sodium 40 mg 04/13/22 12:44 04/13/22 13:24 Enoxaparin 40 Mg/0.4 Ml Syringe SUB-Q 40 mg DAILY TIARRA Administration Ibuprofen 600 mg 04/13/22 12:44 04/13/22 15:30 Ibuprofen 600 Mg Tablet PO 600 mg Q6H PRN Administration Cramping Ketorolac Tromethamine 30 mg 04/13/22 12:44 Ketorolac 30 Mg/Ml Vial (*Bkc) IV PUSH 04/18/22 12:43 Q6H PRN Pain Rated 4-6 Naloxone HCl 0.1 mg 04/13/22 12:44 Naloxone Hcl 0.4 Mg/Ml Vial IV PUSH Q2M PRN Respira
--- NOTE | 2022-04-14 07:57 | WPDANESPN ---
Anes - Prog Note Post-Op Date/Time: 04/14/22 07:57 Cardiovascular status: normal Respiratory status: normal Airway patency: baseline Mental status: baseline Post-Op hydration status: normal Vital Signs: Last Vital Signs Temp 36.5 C 04/14/22 04:37 Pulse 65 04/14/22 04:37 Resp 16 04/14/22 04:37 BP 122/67 04/14/22 04:37 Pulse Ox 99 04/13/22 22:50 O2 Del Method Room Air 04/13/22 19:40 O2 Flow Rate 2 04/13/22 13:10 Pain Score (VAS): 11/16 I/O: Intake & Output 04/13/22 04/13/22 04/14/22 15:59 23:59 07:59 Intake Total 1000 600 500 Output Total 130 1400 500 Balance 870 -800 0 Laboratory Tests 04/14/22 04:34 04/14/22 04:34 WBC 12.3 H RBC 5.21 Hgb 10.0 L Hct 31.8 L MCV 61.0 L MCH 19.2 L MCHC 31.4 L RDW 24.1 H Plt Count 273 MPV TNP Immature Gran % (Auto) 0.5 Neut % (Auto) 66.1 Lymph % (Auto) 24.3 [place] % (Auto) 7.2 Eos % (Auto) 1.3 Baso % (Auto) 0.6 Lymph # (Auto) 2.98 [place] # (Auto) 0.9 H Eos # (Auto) 0.2 Baso # (Auto) 0.1 Abs Immat Gran (auto) 0.06 H Absolute Neuts (auto) 8.1 H Absolute Nucleated RBC 0.0 Nucleated RBC % 0.0 Platelet Estimate Adequate % Immature Plt Fraction 5.1 Hypochromasia 1+ Poikilocytosis 1+ Anisocytosis 1+ Ovalocytes 1+ Post-procedural complaints: none Patient Feedback: Patient satisfied with anesthetic care.
[2022-04-14 08:15] VITALS: BP 128/67; PULSE 57; RESP 16; TEMP 36.8; O2SAT 98
[2022-04-14] MEDS: ENOXAPARIN 40 MG/0.4 ML SYRINGE SUB-Q (08:20)
[2022-04-14] MEDS: DOCUSATE SODIUM 100 MG CAPSULE PO (08:20)
== END 2022-04-14 10:25 | disposition home or self-care (01) ==
LOC: ANHSURGERY 06:29 → ANHOB2 12:47
PROVIDERS: PCP Nurse Practitioner Family; Visit Provider Obstetrics & Gynecology
PROC: (CPT 58552; principal; 2022-04-13 07:30)
DX: N93.9 Abnormal uterine and vaginal bleeding, unspecified (principal); N72 Inflammatory disease of cervix uteri; D25.0 Submucous leiomyoma of uterus; D25.1 Intramural leiomyoma of uterus; D25.2 Subserosal leiomyoma of uterus; N81.2 Incomplete uterovaginal prolapse; N94.6 Dysmenorrhea, unspecified; R10.2 Pelvic and perineal pain; D64.9 Anemia, unspecified; I10 Essential (primary) hypertension; J45.909 Unspecified asthma, uncomplicated; R73.03 Prediabetes; F32.A Depression, unspecified; F12.90 Cannabis use, unspecified, uncomplicated; Z87.891 Personal history of nicotine dependence; E66.9 Obesity, unspecified; Z68.31 Body mass index [BMI] 31.0-31.9, adult
CPT/HCPCS: 58552; S2900; 36415; 85025; 85055; 88307; 99199; A9270; J0690; J1100; J1170; J1650; J1885; J2250; J2405; J2704; J2710; J7030; J7120; J7121

== ENCOUNTER 2022-04-30 08:07 | Outpatient (CLI) | payer OTHER, SELFPAY ==
[2022-04-30 17:07] LABS: Hemoglobin A1C 5.2 % (<5.7)
[2022-04-30 17:24] LABS: Cholesterol 150 mg/dL (0-200); HDL Direct 39 mg/dL; Triglycerides 88 mg/dL (<150)
[2022-04-30 17:37] LABS: LDL Cholesterol Direct 64 mg/dL
[2022-04-30 17:55] LABS: Thyroid Stimulating Hormone 0.371 uIU/mL (0.465-4.680)
[2022-04-30 17:58] LABS: Vitamin D 25 Hydroxy 45.1 ng/mL
== END 2022-04-30 08:08 | disposition home or self-care (01) ==
LOC: ANHGOSHLAB 08:08
PROVIDERS: PCP Nurse Practitioner Family; Visit Provider Nurse Practitioner Family
DX: Z00.00 Encounter for general adult medical examination without abnormal findings (principal); E11.9 Type 2 diabetes mellitus without complications; I10 Essential (primary) hypertension; E55.9 Vitamin D deficiency, unspecified
CPT/HCPCS: 36415; 80061; 82306; 83036; 84443

== ENCOUNTER 2022-09-27 12:02 | Outpatient (CLI) | payer OTHER, SELFPAY ==
[2022-09-27 12:28] LABS: Basophils Absolute Auto 0.1 K/mm3 (0.0-0.1); Basophils Percent Auto 1.6 % (0.2-1.2); Eosinophils Absolute Auto 0.3 K/mm3 (0-0.3); Eosinophils Percent Auto 4.5 % (0-4.4); Hemoglobin 11.4 g/dL (12.0-15.0); Immature Granulocyte Absolute 0.02 K/mm3 (0.00-0.031); Immature Granulocyte Percent A 0.3 % (0-0.5); Immature Platelet Fraction Pct 4.5 % (0.9-11.2); Lymphocytes Absolute Auto 1.97 K/mm3 (0.9-3.2); Lymphocytes Percent Auto 29.3 % (18.3-44.2); Mean Corpuscular HGB Conc 31.7 g/dl (32-36); Mean Corpuscular Hemoglobin 20.4 pg (26-34); Mean Corpuscular Volume 64.5 fl (80-100); Monocytes Absolute Auto 0.5 K/mm3 (0.1-0.6); Monocytes Percent Auto 6.8 % (2.6-8.5); Neutrophils Absolute Auto 3.9 K/mm3 (1.3-6.7); Neutrophils Percent Auto 57.5 % (45.5-73.1); Platelet Count Result 328 k/mm3 (150-375); Red Blood Count 5.58 M/mm3 (4.2-5.4); Red Cell Distribution Width 21.7 % (11.5-14.5); White Blood Count 6.7 K/mm3 (4.5-10.0)
[2022-09-27 15:24] LABS: Iron 106 ug/dL (37-170)
[2022-09-27 15:33] LABS: Percent Iron Saturation 26 % (20-50)
== END 2022-09-27 12:03 | disposition home or self-care (01) ==
LOC: ANHLAB 12:04
PROVIDERS: PCP Nurse Practitioner Family; Visit Provider Internal Medicine Hematology & Oncology
DX: D50.9 Iron deficiency anemia, unspecified (principal)
CPT/HCPCS: 36415; 82728; 83540; 83550; 85025; 85055

== ENCOUNTER → 2022-11-05 13:34 | Outpatient (CLI) | payer OTHER, SELFPAY ==
--- NOTE | ~2022-11-05 | MM_ITS ---
EXAMINATION: MM screening [place] BI w gregory HISTORY: Screening TECHNIQUE: Craniocaudal and mediolateral oblique 3-D tomosynthesis images were obtained and synthetic 2-D images were generated. CAD analysis was submitted and interpreted. COMPARISON: Comparison to multiple prior studies sequentially, with oldest reviewed study dated 02/25. BREAST PARENCHYMAL COMPOSITION: There are scattered areas of fibroglandular density. FINDINGS: There is no evidence of suspicious mass, calcification, or architectural distortion to sugg est malignancy in either breast. There has been no suspicious interval change. IMPRESSION: 1. No mammographic evidence of malignancy. 2. Recommend routine screening mammography in one year. BI-RADS Category 1: Negative Reviewed, dictated and finalized at location [facility]. [facility]
== END ==
PROVIDERS: PCP Nurse Practitioner Family; Visit Provider Obstetrics & Gynecology
DX: Z12.31 Encounter for screening mammogram for malignant neoplasm of breast (principal)
CPT/HCPCS: 77063; 77067

== ENCOUNTER 2023-01-02 14:17 | Outpatient (CLI) | payer OTHER, SELFPAY ==
[2023-01-02 15:38] LABS: Basophils Absolute Auto 0.1 K/mm3 (0.0-0.1); Basophils Percent Auto 1.2 % (0.2-1.2); Eosinophils Absolute Auto 0.2 K/mm3 (0-0.3); Eosinophils Percent Auto 2.7 % (0-4.4); Hemoglobin 12.2 g/dL (12.0-15.0); Immature Granulocyte Absolute 0.02 K/mm3 (0.00-0.031); Immature Granulocyte Percent A 0.2 % (0-0.5); Immature Platelet Fraction Pct 5.7 % (0.9-11.2); Lymphocytes Percent Auto 15.8 % (18.3-44.2); Mean Corpuscular HGB Conc 31.3 g/dl (32-36); Mean Corpuscular Volume 67.1 fl (80-100); Monocytes Absolute Auto 0.6 K/mm3 (0.1-0.6); Monocytes Percent Auto 6.9 % (2.6-8.5); Neutrophils Absolute Auto 6.5 K/mm3 (1.3-6.7); Neutrophils Percent Auto 73.2 % (45.5-73.1); Platelet Count Result 293 k/mm3 (150-375); Red Blood Count 5.81 M/mm3 (4.2-5.4); Red Cell Distribution Width 21.5 % (11.5-14.5); White Blood Count 8.9 K/mm3 (4.5-10.0)
[2023-01-02 15:48] LABS: Albumin Level 4.5 g/dL (3.5-5.1); Anion Gap 5 mmol/L (8-16); Blood Urea Nitrogen 17 mg/dL (7-17); Calcium 9.7 mg/dL (8.4-10.2); Carbon Dioxide 32 mmol/L (22-30); Chloride 103 mmol/L (98-107); Estimated Glomerular Filt Rate > 60; Glucose 119 mg/dL (65-110); Potassium 4.1 mmol/L (3.4-5.0); Sodium 140 mmol/L (137-145)
[2023-01-02 15:52] LABS: INR 1.1; Prothrombin Time 13.4 Seconds (11.1-14.7)
[2023-01-02 15:53] LABS: Partial Thromboplastin Time 28.3 SECONDS (22.3-36.8)
[2023-01-02 15:58] LABS: Appearance Urine Clear (Clear); Bacteria Urine None Seen /hpf; Bilirubin Urine Negative (Negative); Blood Urine Negative (Negative); Color Urine Yellow (Yellow); Glucose Urine UA Negative (Negative); Ketones Urine Trace mg/dL (Negative); Leukocyte Esterase Ur Trace LEU/UL (Negative); Nitrate Urine Negative (Negative); Non Pathogenic Casts 0-2; Protein Urine Negative (Negative); RBC Urine 0-2 /hpf (0-2); Specific Grav Ur 1.023 (1.001-1.035); Squamous Epithelial Cell Urine None seen /hpf (Few); WBC Urine 0-5 /hpf; pH Urine 7.5 (5.0-9.0)
[2023-01-02 16:04] LABS: Add Urine Microscopic? YES
[2023-01-02 16:24] LABS: Urine Cotinine NEGATIVE
[2023-01-02 16:25] LABS: Hemoglobin A1C 5.1 % (<5.7); Platelet Estimate Adequate (Adequate)
[2023-01-02 16:29] LABS: Schistocytes Rare (NORMAL)
[2023-01-02 16:30] LABS: Anisocytosis 3+ (NORMAL); Hypochromasia 1+ (NORMAL)
[2023-01-02 16:31] LABS: Microcytosis 1+ (NORMAL)
== END 2023-01-02 14:18 | disposition home or self-care (01) ==
LOC: ANHSURGERY 14:21
PROVIDERS: PCP Nurse Practitioner Family; Visit Provider Orthopaedic Surgery
DX: M17.11 Unilateral primary osteoarthritis, right knee (principal); Z01.818 Encounter for other preprocedural examination
CPT/HCPCS: 80048; 80307; 81001; 82040; 83036; 85025; 85055; 85610; 85730; 87081

== ENCOUNTER 2023-01-23 01:29 | Day surgery (SDC) | payer OTHER, SELFPAY ==
[2023-01-02 14:33] VITALS: BP 133/75; PULSE 72; RESP 16; TEMP 37.1; O2SAT 99; BMI 33.8
--- NOTE | 2023-01-02 14:45 | PC.NURSE ---
Report to the Outpatient Waiting Room, entrance under the green pavilion located off [facility], at time __6:00AM on date __01/23/23 . Planned Procedure Time: _7:30AM . Time changes happen often and if your time is changed the preop area will call you the afternoon before. - You and your visitor will be asked to self-screen and do not enter if you have any COVID symptoms. - Only one visitor is requested with a max of two and NO children visitors are allowed at this time. - The patient visitor may be requested to leave or wait in car when not with patient due to distancing restrictions. - A mask is optional within the hospital at this time. Patients may have clear liquids (water, carbonated beverages, clear teas, apple juice) until 3 hours prior to surgery with a maximum of 20 ounces. - No food from midnight until time of surgery Take the following medications with a SIP of water the morning of surgery: __ESCITALOPRAM DO NOT STOP ANY OF YOUR OTHER PRESCRIPTION MEDICATIONS PRIOR TO SURGERY ?EXCEPT THE FOLLOWING Medications to discontinue per physician HOLD ALL VITAMINS/SUPPLEMENTS 3 DAYS PRE-OP Date to take last dose 01/19/23 Please no make-up, nail turkmen, hairspray, perfume, deodorant, or body powder the day of surgery. No jewelry (including any body piercings) or valuables the day of surgery, leave them at home. Please take a shower or bath the night before, or the morning of, surgery with an antibacterial soap. Wear comfortable, loose fitting clothing. Children are encouraged to wear pajamas. - Jewelry must be removed prior to entering the operating room. Rings and piercings that are not removed may be cut off. - The hospital will not accept responsibility for valuables. - Please leave all valuables, including medications, at home the day of surgery. If you are going home after surgery, a licensed newspaper delivery driver must drive you home. - NO public transportation without another adult if you receive anesthesia. - We recommend that an adult stay with you for 24 hours following discharge. - We also recommend that you do not drive, make important decision, drink alcoholic beverages, or take any drugs that were not prescribed by your health care provider for at least 24 hours after your discharge time. Follow any additional instructions given to you from your surgeon. If you or anyone in your household have experienced Covid symptoms in the past week, please notify your surgeon or the nurse liaison at the phone number below for possible testing. Telephone instructions given to __PATIENT and asked if any additional questions and then verbalized understanding. Patient advised to call surgeon office or pre surgery nurse liaison [phone] if any additional questions.
[2023-01-23] VITALS (14 sets, daily range): BP systolic 107–147; BP diastolic 54–77; PULSE 64–93; RESP 12–18; TEMP 36.3–37; O2SAT 88–100
--- NOTE | ~2023-01-23 | XR_ITS ---
Right Knee Technique: Portable AP and crosstable lateral views Clinical History: Status post TKR Findings: Patient is status post total knee replacement. Orthopedic hardware alignment appears anatom ic. No hardware complication is evident. Subcutaneous emphysema and swelling is likely postoperative in nature. No acute osseous fracture is seen. Impression: Status post total knee replacement, without evidence of hardware complication. Reviewed, dictated and finalized at location . Impression: Status post total knee replacement, without evidence of hardware complication.
[2023-01-23] MEDS: ACETAMINOPHEN 500 MG TABLET 1000 MG PO (06:45)
--- NOTE | 2023-01-23 06:56 | WPDANESEPPF ---
Anes - Initial Pre Proc Eval Procedure: Operation Date: 01/23/23 07:30 Proposed Procedures p Right Total Knee Arthroplasty - Berlin Edwards MD Date/Time: 01/23/23 06:56 Surgeon: Berlin Edwards MD Pre Op Diagnosis: right knee DJD Patient Data Age: 52 Gender: F Height: 1.6 m Weight: 86.6 kg Last Vital Signs Temp 37.1 C 01/02/23 14:33 Pulse 72 01/02/23 14:33 Resp 16 01/02/23 14:33 BP 133/75 01/02/23 14:33 Pulse Ox 99 01/02/23 14:33 O2 Del Method Room Air 01/02/23 14:33 Allergies Allergy/AdvReac Type Severity Reaction Status Date / Time No Known Allergies Allergy Verified 01/23/23 06:40 Home Medications Medication Instructions Recorded Confirmed Type escitalopram oxalate 20 mg tablet 20 mg PO QAM 09/25/19 01/23/23 History (Lexapro) cholecalciferol (vitamin D3) 50 50 mcg PO DAILY 10/27/21 01/23/23 History mcg (2,000 unit) capsule antiarthritic combination no.2 900 1,800 mg PO DAILY 12/28/21 01/23/23 History mg tablet (glucosamine-chondroitin) irbesartan 300 1 tablet PO HS 01/02/23 01/23/23 History mg-hydrochlorothiazide 12.5 mg tablet chlorhexidine gluconate 4 % 1 applic topical ONCE #237 mL 01/14/23 01/23/23 Rx topical liquid (Hibiclens) Patient hx anesthesia problems: none Family hx anesthesia problems: none Results Review: All pre-operative results and documents have been reviewed as part of the pre-operative evaluation. [facility] Past Medical History Medical History Asthma Depression Hypertension Perioral dermatitis Prediabetes Thalassemia Surgical History Surgical History History of colonoscopy History of hysterectomy (~04/2022) Family History Family History Father Family history of elevated blood lipids Mother Family history of lung cancer Other Asthma Depression Hypertension Social History Social History Smoking packs per day: 0.5 Smoking cigarettes per day: 10.0 Years smoked: 4 Smoking pack-years: 2.00 Smoking status: Former smoker Tobacco type: cigarettes Smoking end date: 04/06/86 Alcohol intake: current Drinks per week: 10 Alcohol use details: STOPPED DRINKING OCTOBER 2021 Substance use: current Substance use type: marijuana Other substance usage details: smoking occasionally Last use: 04-06-22 Lack of Transportation: No Lack of Food: Never True Current Housing: I Have Housing Concerned About Future Housing: No Difficulty Paying Gas/Electric Bills: No Difficulty Paying for Meds: No Currently Unemployed: No Education: Decline to Answer Difficulty w/ Childcare or Family Care: No Living arrangements: with family Additional living arrangements comments: [place] Occupation/Education: occupation 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 @ [employer] Gender identity (if verbalized by the patient): Female Sexual Orientation (if Verbalized by the Patient): Straight or Heterosexual Spiritual care concerns: No Agree to blood products: Yes Anes - Eval Final PreProcedure Day of Procedure 01/23/23 06:56 Patient weight: obese Heart: regular rate and rhythm Lungs: clear to auscultation Airway: Mallampati scale class II Neurological: alert and oriented Last oral intake: >/= 8 hours ASA classification: III Emergent: no Anesthetic plan: proceed Anesthesia type and monitoring: general LMA and standard monitoring Results Review: All pre-operative results and documents have been reviewed as part of the pre-operative evaluation. Informed Consent: The patient's anesthetic plan and its attendant risks and benefits were discussed with the patient/family/POA. Questions were solicited and answers provided to the satisfaction of the
[2023-01-23] MEDS: LACTATED RINGERS 1,000 ML 30 ML IV CONT ×2 (07:00→11:06)
--- NOTE | 2023-01-23 07:02 | WPDANESPNB ---
Anes - Peripheral Nerve Block Date/Time: 01/23/23 07:02 I have discussed with the patient/family/POA the placement of a peripheral nerve block for post-operative pain management, including associated risks, benefits, complications, and side effects. Alternative methods of post-operative analgesia were detailed. Questions were solicited and answers provided to the satisfaction of the patient/family/POA. Time-Out: A pre-procedural Time-Out was completed immediately before starting the procedure and confirmed: Patient Identification, Site, Procedure, Patient Position and the Availability of Requisite Equipment. Clinical Indications: Acute post-operative pain management requested by the operative surgeon. Nerve Block Insertion Note Anes-nerve block: adductor canal right Patient position: supine Skin prep: chlorhexidine Needle: 22 gauge, stimulating, insulated echogenic needle. Needle length: 80 mm Technique: ultrasound Injectate: bupivacaine 0.5% with epi 5 mcg/ml (30cc - no epi) Observations: tolerated well Complications: none Procedure start time:: 724 Procedure end time:: 729
[2023-01-23] MEDS: TRANEXAMIC ACID 1,000MG/ISO100 1,000 MG/100 ML BAG 200 MG IVPB (07:03)
--- NOTE | 2023-01-23 07:15 | WPDHPUPDATE1 ---
History and Physical Update Update Date/Time: 01/23/23 07:15 History and Physical has been reviewed, including an updated exam of the patient. There are NO changes in the patient's condition. Risks, benefits, and alternatives have been discussed and questions answered. Patient agrees to proceed with procedure.
[2023-01-23] MEDS: ceFAZolin 2 GM/D5W 50 ML 2 GM/50 ML BAG IVPB ×2 (07:36→16:56)
[2023-01-23] MEDS: GENTAMICIN BONE CEMENT REFOBACIN 1 EACH TOPICAL (08:58)
[2023-01-23] MEDS: ceFAZolin SODIUM 1 GM VIAL IV PUSH (10:26)
--- NOTE | 2023-01-23 11:12 | W.PM.PROC2 ---
Procedure Note - Detailed Date of Procedure 01/23/23 Pre-op Diagnosis right knee DJD Post-op Diagnosis Same Procedure Performed R TKA Surgeon Berlin Edwards MD Anesthesia General Description of Procedure THE RIGHT KNEE WAS PREPPED AND DRAPED IN THE STERILE FASHION. A MIDLINE SKIN INCISION WAS MADE. A MEDIAL PARAPATELLAR ARTHROTOMY WAS MADE. THE PATELLA WAS EVERTED. THERE WAS TRICOMPARTMENT DJD. THERE WAS MINIMAL PATELLA DJD. AN INTRAMEDULLARY VANGIE WAS PLACED IN THE FEMUR. A DISTAL FEMORAL CUT WAS MADE IN 5 DEGREES OF VALGUS REMOVING APPROXIMATELY 9 MM OF BONE FROM THE DISTAL FEMUR. THE FEMUR WAS SIZED TO 65. A 65 FEMORAL CUTTING BLOCK WAS PLACED IN 3 DEGREES OF EXTERNAL ROTATION AND IN ALIGNMENT WITH SHANA'S LINE AND THE TRANSEPICONDYLAR AXIS. ANTERIOR POSTERIOR AND CHAMFER CUTS WERE MADE. THE CUTS WERE EXCELLENT. NEXT AN INTRAMEDULLARY CUTTING GUIDE WAS PLACED IN THE TIBIA. A TRANS TIBIAL CUT WAS MADE ALONG THE LONG AXIS OF THE TIBIA. APPROXIMATELY 10 MM OF BONE WAS REMOVED FROM THE HIGH SIDE OF THE TIBIA. THE TIBIA WAS THEN PLANED TO A SMOOTH SURFACE. POSTERIOR FEMORAL OSTEOPHYTES WERE REMOVED FROM THE FEMORAL CONDYLES. A 71 TIBIAL TRIAL WAS PLACED IN ALIGNMENT WITH THE 1/3 MEDIAL ASPECT OF THE TIBIAL TUBERCLE. THEN A 65 FEMORAL TRIAL COMPONENT WAS PLACED. BOTH HAD EXCELLENT FITS. EVENTUALLY A 10 MM CR POLYETHYLENE TRIAL COMPONENT WAS PLACED. THE KNEE WAS TAKEN THROUGH A RANGE OF MOTION. THE KNEE CAME OUT TO FULL EXTENSION. THERE WAS NO ABNORMAL TILT TO THE PATELLA. THERE WAS GOOD A/P AND VARUS/VALGUS STABILITY. THERE WAS NO EXCESSIVE ROLL BACK WITH FLEXION. THE TRIAL COMPONENTS WERE REMOVED. THEN A 65 FEMORAL COMPONENT AND 71 TIBIAL COMPONENT WITH A 12 CR POLYETHYLENE COMPONENT WERE CEMENTED INTO PLACE. ONCE THE CEMENT WAS HARD THE KNEE WAS TAKEN THROUGH A ROM AGAIN AND FOUND TO BE STABLE WITH NO PATELLA TILT NO EXCESSIVE ROLL BACK WITH FLEXION AND GOOD STABILITY WITH COMPLETE AND FULL EXTENSION. THE KNEE WAS IRRIGATED WITH STERILE BETADINE AND WATER FOR ABOUT 3 MINUTES. THE BLEEDERS WERE CAUTERIZED. THE ARTHROTOMY WAS REPAIRED WITH NUMBER 1 VICRYL. THE SUB CUTANEOUS LAYER WITH 2-0 VICRYL AND THE SKIN WITH LEENA. THE WOUND WAS WASHED AND A STERILE DRESSING WAS APPLIED. PATIENT WAS EXTUBATED. Estimated Blood Loss -200.0 Pathology None sent Complications No immediate complications Condition Stable Disposition PACU
--- NOTE | 2023-01-23 12:15 | PC.NURSE ---
This patient, Destiny Conley, was admitted to [facility] [place] [facility] Room 319-01. Patient/family oriented to hospital policies and general routines including ID bracelet, bed and alarms, visiting hours, pain management, procedures, bathroom and other care routines, personal items, smoking policy, room service/diet, and visiting hours. Information on how to activate the Rapid Response Team has been discussed. Patient/Family are encouraged to report perceived risks to care and to ask questions if they do not understand what they are told or what they should do.
[2023-01-23] MEDS: polyethylene glycoL 3350 17 GM POWD.PACK PO (13:03)
[2023-01-23] MEDS: KETOROLAC 15 MG/ML VIAL (*BKC) IV PUSH ×2 (13:03→19:33)
[2023-01-23] MEDS: CHOLECALCIFEROL 1,000 UNITS TABLET 2000 UNITS PO (13:04)
[2023-01-23] MEDS: ASPIRIN 325 MG ENTERIC TABLET PO ×2 (13:04→22:56)
[2023-01-23] MEDS: FAMOTIDINE 20 MG TABLET PO ×2 (13:04→22:55)
[2023-01-23] MEDS: SENNA/DOCUSATE SODIUM TABLET 2 TAB PO ×2 (13:04→22:56)
[2023-01-23] MEDS: oxyCODONE/ACETAMINOPHEN (*CRX) 5-325 MG TABLET 2 TABLET PO ×2 (14:04→23:06)
[2023-01-23] MEDS: IRBESARTAN 150 MG TABLET 300 MG PO (22:54)
[2023-01-23] MEDS: hydroCHLOROthiazide 12.5 MG CAPSULE PO (22:57)
[2023-01-24] VITALS: BP 107/57; PULSE 82; RESP 18; TEMP 36.2; O2SAT 96
[2023-01-24 04:00] VITALS: BP 109/50; PULSE 63; RESP 16; TEMP 35.7; O2SAT 98
[2023-01-24] MEDS: KETOROLAC 15 MG/ML VIAL (*BKC) IV PUSH ×2 (05:28→06:28)
[2023-01-24 06:27] LABS: Basophils Absolute Auto 0.1 K/mm3 (0.0-0.1); Basophils Percent Auto 0.6 % (0.2-1.2); Eosinophils Absolute Auto 0.1 K/mm3 (0-0.3); Eosinophils Percent Auto 1.3 % (0-4.4); Hematocrit 26.6 % (37.0-47.0); Hemoglobin 8.3 g/dL (12.0-15.0); Immature Granulocyte Absolute 0.03 K/mm3 (0.00-0.031); Immature Granulocyte Percent A 0.4 % (0-0.5); Immature Platelet Fraction Pct 5.2 % (0.9-11.2); Lymphocytes Absolute Auto 1.98 K/mm3 (0.9-3.2); Lymphocytes Percent Auto 23.1 % (18.3-44.2); Mean Corpuscular HGB Conc 31.2 g/dl (32-36); Mean Corpuscular Hemoglobin 21.3 pg (26-34); Mean Corpuscular Volume 68.2 fl (80-100); Monocytes Absolute Auto 0.9 K/mm3 (0.1-0.6); Monocytes Percent Auto 10.4 % (2.6-8.5); Neutrophils Absolute Auto 5.5 K/mm3 (1.3-6.7); Neutrophils Percent Auto 64.2 % (45.5-73.1); Platelet Count Result 211 k/mm3 (150-375); Red Cell Distribution Width 20.9 % (11.5-14.5); White Blood Count 8.6 K/mm3 (4.5-10.0)
[2023-01-24 06:38] LABS: Anion Gap 0 mmol/L (8-16); Blood Urea Nitrogen 17 mg/dL (7-17); Calcium 8.8 mg/dL (8.4-10.2); Carbon Dioxide 33 mmol/L (22-30); Chloride 103 mmol/L (98-107); Estimated CRCL calculation 96 ml/min; Estimated Glomerular Filt Rate > 60; Glucose 99 mg/dL (65-110); Potassium 3.9 mmol/L (3.4-5.0); Sodium 136 mmol/L (137-145)
[2023-01-24 06:55] LABS: Anisocytosis 2+ (NORMAL); Hypochromasia 2+ (NORMAL); Microcytosis 2+ (NORMAL); Platelet Estimate Adequate (Adequate)
[2023-01-24 06:56] LABS: Schistocytes None Seen (NORMAL)
[2023-01-24 08:00] VITALS: BP 121/63; PULSE 65; RESP 18; TEMP 36.9; O2SAT 98
[2023-01-24] MEDS: ASPIRIN 325 MG ENTERIC TABLET PO (08:13)
[2023-01-24] MEDS: ESCITALOPRAM OXALATE 10 MG TABLET 20 MG PO (08:13)
[2023-01-24] MEDS: CHOLECALCIFEROL 1,000 UNITS TABLET 2000 UNITS PO (08:13)
[2023-01-24] MEDS: polyethylene glycoL 3350 17 GM POWD.PACK PO (08:13)
[2023-01-24] MEDS: ceFAZolin 2 GM/D5W 50 ML 2 GM/50 ML BAG IVPB ×2 (08:13)
[2023-01-24] MEDS: SENNA/DOCUSATE SODIUM TABLET 2 TAB PO (08:13)
[2023-01-24] MEDS: FAMOTIDINE 20 MG TABLET PO (08:13)
[2023-01-24] MEDS: oxyCODONE/ACETAMINOPHEN (*CRX) 5-325 MG TABLET 1 TABLET PO (09:23)
--- NOTE | 2023-01-24 11:16 | WPDANESPN ---
Anes - Prog Note Post-Op Date/Time: 01/24/23 11:16 Cardiovascular status: normal Respiratory status: normal Airway patency: baseline Mental status: baseline Post-Op hydration status: normal Vital Signs: Last Vital Signs Temp 98.4 F 01/24/23 08:00 Pulse 65 01/24/23 08:00 Resp 18 01/24/23 08:00 BP 121/63 01/24/23 08:00 Pulse Ox 98 01/24/23 08:00 O2 Del Method Room Air 01/24/23 08:00 O2 Flow Rate 2 01/23/23 12:05 Pain Score (VAS): 5 I/O: Intake & Output 01/23/23 01/24/23 01/24/23 23:59 07:59 15:59 Intake Total 530 325 480 Output Total 1425 Balance 530 -1100 480 Laboratory Tests 01/24/23 06:06 01/24/23 06:06 01/24/23 01/24/23 06:06 06:06 WBC 8.6 RBC 3.90 L Hgb 8.3 L D Hct 26.6 L MCV 68.2 L MCH 21.3 L MCHC 31.2 L RDW 20.9 H Plt Count 211 MPV TNP Immature Gran % (Auto) 0.4 Neut % (Auto) 64.2 Lymph % (Auto) 23.1 [place] % (Auto) 10.4 H Eos % (Auto) 1.3 Baso % (Auto) 0.6 Lymph # (Auto) 1.98 [place] # (Auto) 0.9 H Eos # (Auto) 0.1 Baso # (Auto) 0.1 Abs Immat Gran (auto) 0.03 Absolute Neuts (auto) 5.5 Absolute Nucleated RBC 0.0 Nucleated RBC % 0.0 Platelet Estimate Adequate % Immature Plt Fraction 5.2 Hypochromasia 2+ Anisocytosis 2+ Microcytosis 2+ Schistocytes None seen Sodium 136 L Potassium 3.9 Chloride 103 Carbon Dioxide 33 H Anion Gap 0 L BUN 17 Creatinine 0.60 L Estim Creat Clear Calc 96 Estimated GFR > 60 Glucose 99 Calcium 8.8 Post-procedural complaints: none Patient Feedback: Patient satisfied with anesthetic care.
[2023-01-24 12:00] VITALS: BP 92/62; PULSE 64; RESP 16; TEMP 36.3; O2SAT 98
--- NOTE | 2023-01-24 13:10 | PM.PNORT ---
Progress Note: A&P Assessment and Plan (1) Right knee DJD: Qualifiers: Osteoarthritis type: primary Qualified Code(s): M17.11 - Unilateral primary osteoarthritis, right knee Code(s): M17.11 - Unilateral primary osteoarthritis, right knee Status: Acute Assessment and Plan: POD 1 DOING WELL. OK TO DC HOME F/U IN 3 WEEKS. Subjective Subjective Date/Time Seen: 01/24/23 13:10 POD 1 DOING WELL. NO CALF PAIN. GOOD PROGRESS WITH PT. SHE DENIES ANY SHORTNESS OF BREATH OR CHEST PAIN. NO FATIGUE OR DIZZINESS WITH PT. Exam Extrem: Other: VSS AFEBRILE DRESSING DRY NV INTACT CALF SOFT NON TENDER NEG HOMANS SIGN Objective Data Vital Signs Vital Signs: Vital Signs - 24 hr 01/23/23 13:52 01/23/23 15:03 01/23/23 17:52 Temperature 36.8 C 36.8 C Pulse Rate 86 83 Respiratory Rate 18 18 Blood Pressure 107/62 110/65 Pulse Oximetry 96 98 Oxygen Delivery Room Air 01/23/23 20:00 01/24/23 00:00 01/23/23 20:30 Temperature 36.3 C L 36.2 C L Pulse Rate 64 82 82 Respiratory Rate 16 18 18 Blood Pressure 114/54 L 107/57 L Pulse Oximetry 95 96 96 Oxygen Delivery Room Air 01/24/23 04:00 01/24/23 08:00 01/24/23 08:00 Temperature 35.7 C L 36.9 C Pulse Rate 63 65 Respiratory Rate 16 18 Blood Pressure 109/50 L 121/63 Pulse Oximetry 98 98 Oxygen Delivery Room Air Intake/Output Intake/Output: Intake & Output 01/21/23 01/22/23 01/23/23 01/24/23 23:59 23:59 23:59 23:59 Intake Total 680 805 Output Total 1425 Balance 680 -620 Meds/Results Medications: Active Medications Generic Name Dose Route Start Last Admin Trade Name Freq PRN Reason Stop Dose Admin Acetaminophen 1,000 mg 01/23/23 12:07 Acetaminophen 500 Mg Tablet PO Q6H PRN Pain Rated 1-3 Aspirin 325 mg 01/23/23 13:30 01/24/23 08:13 Aspirin 325 Mg Enteric Tablet PO 325 mg Q12HR TIARRA Administration Diazepam 5 mg 01/23/23 12:07 Diazepam (*Crx) 5 Mg Tablet PO Q8H PRN Spasms Diphenhydramine HCl 25 mg 01/23/23 12:07 Diphenhydramine Hcl Inj 50 Mg/Ml Vial IV PUSH Q6H PRN Itching Escitalopram Oxalate 20 mg 01/23/23 13:30 01/24/23 08:13 Escitalopram Oxalate 10 Mg Tablet PO 20 mg QAM TIARRA Administration Famotidine 20 mg 01/23/23 13:30 01/24/23 08:13 Famotidine 20 Mg Tablet PO 20 mg Q12HR TIARRA Administration Hydrochlorothiazide 12.5 mg 01/23/23 21:00 01/23/23 22:57 Hydrochlorothiazide 12.5 Mg Capsule PO 12.5 mg HS TIARRA Administration Irbesartan 300 mg 01/23/23 21:00 01/23/23 22:54 Irbesartan 150 Mg Tablet PO 300 mg HS TIARRA Administration Naloxone HCl 0.1 mg 01/23/23 12:07 Naloxone Hcl 0.4 Mg/Ml Vial IV PUSH Q2M PRN Opiate Reversal Ondansetron HCl 4 mg 01/23/23 12:07 Ondansetron Inj 4 Mg/2 Ml Vial IV PUSH Q4H PRN Nausea And Vomiting Oxycodone/Acetaminophen 1 tablet 01/23/23 12:07 01/24/23 09:23 Oxycodone/Acetaminophen (*Crx) 5-325 Mg Tablet PO 1 tablet Q4H PRN Administration Pain Rated 4-6 Oxycodone/Acetaminophen 2 tablet 01/23/23 12:07 01/23/23 23:06 Oxycodone/Acetaminophen (*Crx) 5-325 Mg Tablet PO 2 tablet Q6H PRN Administration Pain Rated 7-10 Polyethylene Glycol 17 gm 01/23/23 13:30 01/24/23 08:13 Polyethylene Glycol 3350 17 Gm Powd.Pack PO 17 gm QAM TIARRA Administration Senna/Docusate Sodium 2 tab 01/23/23 13:30 01/24/23 08:13 Senna/Docusate Sodium Tablet PO 2 tab BID TIARRA Administration Vitamin D 2,000 units 01/23/23 13:30 01/24/23 08:13 Cholecalciferol 1,000 Units Tablet PO 2,000 units DAILY TIARRA Administration Radiology Results: ITS Impressions Knee X-Ray 01/23/23 11:37 Impression: Status post total knee replacement, without evidence of hardware complication. Labs Labs: Laboratory Results - last 24 hr 01/24/23 01/24/23 06:06 06:06 WBC 8.6 RBC 3.90 L Hgb 8.3 L D
--- NOTE | 2023-01-24 13:12 | PM.DS ---
DS: Admitting Diagnosis Discharge Date 01/24/23 Admitting Diagnosis RIGHT KNEE DJD DS: Discharge Diagnosis Discharge Diagnosis (1) Right knee DJD: Qualifiers: Osteoarthritis type: primary Qualified Code(s): M17.11 - Unilateral primary osteoarthritis, right knee Code(s): M17.11 - Unilateral primary osteoarthritis, right knee Status: Acute DS: Summary Hospital Course Reason for hospitalization: RIGHT TKA Hospital Course: PATIENT WAS ADMITTED S/P TOTAL KNEE ARTHROPLASTY FOR POSTOPERATIVE MEDICAL MANAGEMENT, PAIN CONTROL AND MOBILIZATION WITH PHYSICAL AND OCCUPATIONAL THERAPY. THE PATIENT PROGRESSED WELL WITH PT/OT. LABS AND VITALS REMAINED STABLE AND PAIN WELL CONTROLLED. THE PATIENT HAS BEEN CLEARED TO BE DISCHARGED HOME. FOLLOW UP APPOINTMENT SCHEDULED. DISCHARGE INSTRUCTIONS DISCUSSED AT LENGTH WITH THE PATIENT. MEDICATIONS REVIEWED. Status at Discharge Cognitive/behavioral status at discharge: STABLE Functional status at discharge: uses cane/walker Overall status at discharge: patient is progressing back to baseline Time Spent with Patient Time attestation: Total time spent providing and/or coordinating discharge services: DS: Data Data Completed and Pending Labs on day of discharge: Labs from last 24 hours 01/24/23 01/24/23 06:06 06:06 WBC 8.6 RBC 3.90 L Hgb 8.3 L D Hct 26.6 L MCV 68.2 L MCH 21.3 L MCHC 31.2 L RDW 20.9 H Plt Count 211 MPV TNP Immature Gran % (Auto) 0.4 Neut % (Auto) 64.2 Lymph % (Auto) 23.1 [place] % (Auto) 10.4 H Eos % (Auto) 1.3 Baso % (Auto) 0.6 Lymph # (Auto) 1.98 [place] # (Auto) 0.9 H Eos # (Auto) 0.1 Baso # (Auto) 0.1 Abs Immat Gran (auto) 0.03 Absolute Neuts (auto) 5.5 Absolute Nucleated RBC 0.0 Nucleated RBC % 0.0 Platelet Estimate Adequate % Immature Plt Fraction 5.2 Hypochromasia 2+ Anisocytosis 2+ Microcytosis 2+ Schistocytes None seen Sodium 136 L Potassium 3.9 Chloride 103 Carbon Dioxide 33 H Anion Gap 0 L BUN 17 Creatinine 0.60 L Estim Creat Clear Calc 96 Estimated GFR > 60 Glucose 99 Calcium 8.8 Procedures/Treatments: RIGHT TKA Discharge Plan Discharge Patient Disposition: Home Health Service Discharge Instructions: Per Care Coordination, patient to discharge with [facility] ([phone]) for PT/OT and care home needs. Agency will call to schedule the initial visit. [place] [facility] M[facility] [address] [place] [address] POST OPERATIVE DISCHARGE INSTRUCTIONS FOLLOWING TOTAL KNEE REPLACEMENT SURGERY ? Your dressing will be changed prior to your discharge. You will be sent home with one additional dressing to be changed on post op day 7 by the home health RN. Your kamla will be removed on the 14th day after surgery and steri-strips will be placed. Please practice good hand hygiene and do not touch your incision in order to prevent infection. ? You may shower with your dressing but do not submerge in a bath tub. ? Do not drive or operate machinery until you are released by Dr. Edwards. ? Do not walk without a walker for any reason until you are released by Dr. Edwards. ? Continue to use your ice machine. Please use a towel or pillow case to protect your skin before applying your ice machine. ? Do NOT place a pillow under your knee. You may use a pillow from the calf down if needed. This will prevent a flexion contracture postoperatively. ? You may begin use of your CPM machine at home if you have been given one pre-operatively. DO NOT USE WHILE YOU ARE SLEEPING. ? Your first post op appointment was sent to you via mail preoperatively. If you have any questions or are unable to make your appointment, please contact our office for scheduling questions. ? Your medications have been sent to your pharmacy. You have been sent home with pain medica
== END 2023-01-24 14:40 | disposition home health service (06) ==
LOC: ANHSURGERY 10:00 → ANH3MEDSUR 12:09
PROVIDERS: PCP Nurse Practitioner Family; Visit Provider Orthopaedic Surgery
PROC: (CPT 27447; principal; 2023-01-23 07:30)
DX: M17.11 Unilateral primary osteoarthritis, right knee (principal); G89.18 Other acute postprocedural pain; I10 Essential (primary) hypertension; R73.03 Prediabetes; F32.A Depression, unspecified; Z87.891 Personal history of nicotine dependence; F12.90 Cannabis use, unspecified, uncomplicated; E66.9 Obesity, unspecified; Z68.34 Body mass index [BMI] 34.0-34.9, adult
CPT/HCPCS: 27447; 64447; 36415; 73560; 80048; 80307; 81001; 82040; 83036; 85025; 85055; 85610; 85730; 86850; 86900; 86901; 87081; 97110; 97116; 97161; 97165; 97530; 97535; A9270; C1713; C1776; J0171; J0690; J1100; J1170; J1885; J2250; J2270; J2405; J2704; J2795; J3010; J7120

== ENCOUNTER 2023-02-14 13:57 | Outpatient (CLI) | payer OTHER, SELFPAY ==
[2023-02-14 19:36] LABS: Hematocrit 31.8 % (37.0-47.0); Hemoglobin 9.8 g/dL (12.0-15.0); Mean Corpuscular HGB Conc 30.8 g/dl (32-36); Mean Corpuscular Hemoglobin 21.8 pg (26-34); Mean Corpuscular Volume 70.7 fl (80-100); Mean Platelet Volume 11.7 fl (7.4-10.4); Platelet Count Result 473 k/mm3 (150-375); Red Cell Distribution Width 24.5 % (11.5-14.5); White Blood Count 7.4 K/mm3 (4.5-10.0)
== END 2023-02-14 13:58 | disposition home or self-care (01) ==
LOC: ANHGOSHLAB 13:58
PROVIDERS: PCP Family Medicine; Visit Provider Nurse Practitioner Family
DX: D56.9 Thalassemia, unspecified (principal)
CPT/HCPCS: 36415; 85027; 85055

== ENCOUNTER 2023-04-19 10:00 | Outpatient (RCR) | payer OTHER, SELFPAY ==
--- NOTE | 2023-02-19 15:09 | PTOPEVAL1 ---
Assessment and note entered by Hellen Sepulveda DPT Evaluation Information Assessment Status Evaluation Subjective Information Pt is s/p R TKA on 01/23/23. Pt had home health until about a week ago. Is currently using a walker most of the time. Highest pain in last week , 2-3/10 and lowest 0/10. Reports stiffness in her knee. Pt has not yet tried to go into the basement. Has stairs to get into her house with a railing and reports no issues there. Some trouble walking distances, will get stiff after walking for awhile and thinks she is still limping. Pt is not driving yet. Prior to surgery patient did not use cane or walker. 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 Is planning on taking 12 weeks off work for surgery. Usually does cut the grass but has not done that yet either. Returns to [place] March 11. Patient goal: improve movement, get rid of stiffness. Reported Pain Level Pain Score 0: Self Report Assessment PT Clinical Summary The patient is presenting to skilled therapy s/p R TKA on 01/23/23. She presents with decreased range of motion, decreased strength, and gait/stair impairments that are contributing to her difficulty performing all activities at home and returning to work. She will highly benefit from therapy to address these impairments and safely return to [facility]. Plan of Care Interventions Electrical Stimulation,Gait Training,Hot Pack/Cold Pack,Manual Therapy,Neuro Re-education,Patient/ Caregiver Education,Therapeutic Activities, Therapeutic Exercise,Self-Care/Home Management PT Services Indicated Yes Treatment Frequency and 2 times a week for 4 weeks Duration These treatments will address the objective and functional deficits as defined above. The patient will be advanced safely and appropriately in order for the patient to progress towards his/her prior level of function. Additional exercises will be introduced and as well as a comprehensive home exercise program upon discharge, if needed, ?to ensure carryover of functional gains achieved in the clinic. This treatment plan has been reviewed and agreement upon by the patient.
--- NOTE | 2023-03-18 13:45 | PTOPPROG ---
Assessment and note entered by Hellen Sepulveda DPT Evaluation Information Assessment Status Progress Subjective Information Pt reports she thinks she is getting some good movement in her leg, still feels weak. Says she has not really had any pain in the last week. Concerned about going back to work and standing 8 hours at a time. Has been able to return to most activities at home including navigating stairs reciprocally but is not cutting the grass yet, which she normally would be doing. Assessment PT Clinical Summary The patient has made good progress overall and reports no real pain recently. Has been able to return to most activities but has not yet been able to cut the grass or return to work. She demonstrates improved knee flexion to 117 degrees and improved gait speed and 5 time sit to stand score. She displays some continued right LE weakness and will benefit from further therapy to improve strength and return to work. Plan of Care Interventions Electrical Stimulation,Gait Training,Hot Pack/Cold Pack,Manual Therapy,Neuro Re-education,Patient/ Caregiver Education,Therapeutic Activities, Therapeutic Exercise PT Services Indicated Yes Treatment Frequency and 2 times a week for 4 weeks Duration These treatments will address the objective and functional deficits as defined above. The patient will be advanced safely and appropriately in order for the patient to progress towards his/her prior level of function. Additional exercises will be introduced and as well as a comprehensive home exercise program upon discharge, if needed, ?to ensure carryover of functional gains achieved in the clinic. This treatment plan has been reviewed and agreement upon by the patient.
--- NOTE | 2023-04-19 10:40 | PTOPDC ---
Assessment and note entered by Hellen Sepulveda DPT Evaluation Information Assessment Status Discharge Subjective Information No pain in the last week, just numbness which is also improving. Goes back to work May 15. Reports no limitations at home. Has been doing a lot more walking and yard work. Has been able to cut grass. Returns to [place] in August. Feels confident with discharge from therapy today. Reported Pain Level Pain Score 0: Self Report Assessment PT Clinical Summary The patient has made excellent progress in therapy overall. She reports no real pain and has been able to resume home activities including yard work . She demonstrates improved LE ROM, strength, gait speed and stair navigation. Due to her progress, plan for discharge at this time. She has been educated in a thorough HEP and to contact [place] and/ or PT as needed. Plan of Care PT Services Indicated No
== END 2023-04-19 13:57 | disposition home or self-care (01) ==
LOC: ANHGOSHPT 10:00
PROVIDERS: PCP Family Medicine; Visit Provider Orthopaedic Surgery
DX: Z47.1 Aftercare following joint replacement surgery (principal); Z96.651 Presence of right artificial knee joint
CPT/HCPCS: 97110; 97112; 97116; 97140; 97161; 97530

== ENCOUNTER 2023-05-07 11:06 | Outpatient (CLI) | payer OTHER, SELFPAY ==
[2023-05-07 11:33] LABS: Basophils Absolute Auto 0.1 K/mm3 (0.0-0.1); Basophils Percent Auto 1.3 % (0.2-1.2); Eosinophils Absolute Auto 0.4 K/mm3 (0-0.3); Eosinophils Percent Auto 4.7 % (0-4.4); Hematocrit 37.5 % (37.0-47.0); Hemoglobin 11.2 g/dL (12.0-15.0); Immature Granulocyte Absolute 0.03 K/mm3 (0.00-0.031); Immature Granulocyte Percent A 0.4 % (0-0.5); Immature Platelet Fraction Pct 6.1 % (0.9-11.2); Lymphocytes Absolute Auto 1.92 K/mm3 (0.9-3.2); Lymphocytes Percent Auto 25.1 % (18.3-44.2); Mean Corpuscular HGB Conc 29.9 g/dl (32-36); Mean Corpuscular Hemoglobin 19.8 pg (26-34); Mean Corpuscular Volume 66.3 fl (80-100); Monocytes Absolute Auto 0.5 K/mm3 (0.1-0.6); Monocytes Percent Auto 6.5 % (2.6-8.5); Neutrophils Absolute Auto 4.7 K/mm3 (1.3-6.7); Platelet Count Result 283 k/mm3 (150-375); Red Blood Count 5.66 M/mm3 (4.2-5.4); Red Cell Distribution Width 21.5 % (11.5-14.5); White Blood Count 7.6 K/mm3 (4.5-10.0)
[2023-05-07 11:41] LABS: Alanine Aminotransferase 17 U/L (6-35); Alkaline Phosphatase 118 U/L (38-126); Anion Gap 3 mmol/L (8-16); Aspartate Amino Transferase 23 U/L (14-36); Bilirubin,Total 0.7 mg/dL (0.2-1.3); Blood Urea Nitrogen 15 mg/dL (7-17); Calcium 9.5 mg/dL (8.4-10.2); Carbon Dioxide 28 mmol/L (22-30); Chloride 103 mmol/L (98-107); Cholesterol 182 mg/dL (0-200); Estimated Glomerular Filt Rate > 60; Glucose 99 mg/dL (65-110); HDL Direct 65 mg/dL; Sodium 134 mmol/L (137-145); Triglycerides 116 mg/dL (<150)
[2023-05-07 11:52] LABS: LDL Cholesterol Direct 75 mg/dL
[2023-05-07 12:03] LABS: Platelet Estimate Adequate (Adequate)
[2023-05-07 12:04] LABS: Anisocytosis 1+ (NORMAL); Ovalocytes 1+ (NORMAL); Poikilocytosis 1+ (NORMAL); Schistocytes Rare (NORMAL)
== END 2023-05-07 11:07 | disposition home or self-care (01) ==
LOC: ANHLAB 11:09
PROVIDERS: PCP Family Medicine; Visit Provider Nurse Practitioner Family
DX: E78.5 Hyperlipidemia, unspecified (principal); I10 Essential (primary) hypertension
CPT/HCPCS: 36415; 80053; 80061; 85025; 85055

== ENCOUNTER 2023-10-04 14:52 | Outpatient (CLI) | payer OTHER, SELFPAY ==
[2023-10-04 15:04] LABS: Basophils Absolute Auto 0.1 K/mm3 (0.0-0.1); Basophils Percent Auto 1.2 % (0.2-1.2); Eosinophils Absolute Auto 0.3 K/mm3 (0-0.3); Eosinophils Percent Auto 3.3 % (0-4.4); Hematocrit 37.1 % (37.0-47.0); Hemoglobin 11.8 g/dL (12.0-15.0); Immature Granulocyte Absolute 0.03 K/mm3 (0.00-0.031); Immature Granulocyte Percent A 0.4 % (0-0.5); Immature Platelet Fraction Pct 6.1 % (0.9-11.2); Lymphocytes Absolute Auto 2.16 K/mm3 (0.9-3.2); Lymphocytes Percent Auto 25.7 % (18.3-44.2); Mean Corpuscular HGB Conc 31.8 g/dl (32-36); Mean Corpuscular Hemoglobin 21.1 pg (26-34); Mean Corpuscular Volume 66.5 fl (80-100); Monocytes Absolute Auto 0.6 K/mm3 (0.1-0.6); Monocytes Percent Auto 7.4 % (2.6-8.5); Neutrophils Absolute Auto 5.2 K/mm3 (1.3-6.7); Platelet Count Result 301 k/mm3 (150-375); Red Blood Count 5.58 M/mm3 (4.2-5.4); Red Cell Distribution Width 21.3 % (11.5-14.5); White Blood Count 8.4 K/mm3 (4.5-10.0)
[2023-10-04 15:10] LABS: Platelet Estimate Adequate (Adequate); Schistocytes None Seen (NORMAL)
[2023-10-04 15:11] LABS: Ovalocytes 1+ (NORMAL); Target Cells 1+ (NORMAL)
[2023-10-04 15:14] LABS: Anisocytosis 1+ (NORMAL); Microcytosis 1+ (NORMAL)
[2023-10-04 15:15] LABS: Poikilocytosis 2+ (NORMAL)
[2023-10-04 16:32] LABS: Iron 101 ug/dL (37-170)
[2023-10-04 16:35] LABS: Anion Gap 7 mmol/L (8-16); Blood Urea Nitrogen 25 mg/dL (7-17); Carbon Dioxide 28 mmol/L (22-30); Chloride 101 mmol/L (98-107); Estimated Glomerular Filt Rate > 60; Glucose 89 mg/dL (65-110); Potassium 4.2 mmol/L (3.4-5.0); Sodium 136 mmol/L (137-145)
[2023-10-04 16:43] LABS: Percent Iron Saturation 27 % (20-50)
== END 2023-10-04 14:53 | disposition home or self-care (01) ==
LOC: ANHLAB 14:53
PROVIDERS: PCP Family Medicine; Visit Provider Internal Medicine Hematology & Oncology
DX: D50.9 Iron deficiency anemia, unspecified (principal)
CPT/HCPCS: 36415; 80048; 82728; 83540; 83550; 85025; 85055

== ENCOUNTER 2023-11-05 09:16 | Outpatient (CLI) | payer OTHER, SELFPAY ==
[2023-11-05 14:29] LABS: Alanine Aminotransferase 16 U/L (6-35); Albumin Level 4.2 g/dL (3.5-5.1); Alkaline Phosphatase 110 U/L (38-126); Anion Gap 6 mmol/L (8-16); Aspartate Amino Transferase 56 U/L (14-36); Bilirubin,Total 0.8 mg/dL (0.2-1.3); Blood Urea Nitrogen 21 mg/dL (7-17); Calcium 9.9 mg/dL (8.4-10.2); Carbon Dioxide 31 mmol/L (22-30); Chloride 103 mmol/L (98-107); Cholesterol 175 mg/dL (0-200); Estimated Glomerular Filt Rate > 60; Glucose 92 mg/dL (65-110); HDL Direct 58 mg/dL; Potassium 4.3 mmol/L (3.4-5.0); Sodium 140 mmol/L (137-145); Triglycerides 104 mg/dL (<150)
[2023-11-05 14:36] LABS: Basophils Absolute Auto 0.1 K/mm3 (0.0-0.1); Basophils Percent Auto 1.3 % (0.2-1.2); Eosinophils Absolute Auto 0.4 K/mm3 (0-0.3); Eosinophils Percent Auto 5.4 % (0-4.4); Hematocrit 38.7 % (37.0-47.0); Hemoglobin 11.9 g/dL (12.0-15.0); Immature Granulocyte Absolute 0.02 K/mm3 (0.00-0.031); Immature Granulocyte Percent A 0.3 % (0-0.5); Lymphocytes Absolute Auto 1.68 K/mm3 (0.9-3.2); Lymphocytes Percent Auto 24.7 % (18.3-44.2); Mean Corpuscular HGB Conc 30.7 g/dl (32-36); Mean Corpuscular Hemoglobin 20.9 pg (26-34); Monocytes Absolute Auto 0.5 K/mm3 (0.1-0.6); Monocytes Percent Auto 7.8 % (2.6-8.5); Neutrophils Absolute Auto 4.1 K/mm3 (1.3-6.7); Neutrophils Percent Auto 60.5 % (45.5-73.1); Platelet Count Result 273 k/mm3 (150-375); Red Blood Count 5.69 M/mm3 (4.2-5.4); Red Cell Distribution Width 21.6 % (11.5-14.5); White Blood Count 6.8 K/mm3 (4.5-10.0)
[2023-11-05 14:47] LABS: LDL Cholesterol Direct 81 mg/dL
[2023-11-05 14:50] LABS: Thyroid Stimulating Hormone 0.331 uIU/mL (0.465-4.680)
[2023-11-05 15:29] LABS: Vitamin D 25 Hydroxy 31.2 ng/mL
[2023-11-05 15:32] LABS: Hemoglobin A1C 5.1 % (<5.7)
[2023-11-05 15:51] LABS: Platelet Estimate Adequate (Adequate)
[2023-11-05 15:52] LABS: Anisocytosis 3+ (NORMAL); Hypochromasia 1+ (NORMAL); Schistocytes None Seen (NORMAL)
[2023-11-05 15:53] LABS: Microcytosis 1+ (NORMAL)
== END 2023-11-05 09:17 | disposition home or self-care (01) ==
LOC: ANHGOSHLAB 09:17
PROVIDERS: PCP Family Medicine; Visit Provider Nurse Practitioner Family
DX: Z00.00 Encounter for general adult medical examination without abnormal findings (principal); Z13.1 Encounter for screening for diabetes mellitus; I10 Essential (primary) hypertension; Z13.21 Encounter for screening for nutritional disorder; Z13.220 Encounter for screening for lipoid disorders; Z13.29 Encounter for screening for other suspected endocrine disorder
CPT/HCPCS: 36415; 80053; 80061; 82306; 83036; 84443; 85025; 85055

== ENCOUNTER 2024-02-25 13:36 | Outpatient (CLI) | payer OTHER, SELFPAY ==
--- NOTE | ~2024-02-25 | MM_ITS ---
EXAMINATION: MM screening [place] BI w gregory HISTORY: Screening TECHNIQUE: Craniocaudal and mediolateral oblique 3-D tomosynthesis images were obtained and synthetic 2-D images were generated. CAD analysis was submitted and interpreted. COMPARISON: Comparison to multiple prior studies sequentially, with oldest reviewed study dated 12/2014. BREAST PARENCHYMAL COMPOSITION: Not dense: There are scattered areas of fibroglandular density. FINDINGS: There is no evidence of suspicious mass, calcification, or architectural distortion to sugg est malignancy in either breast. There has been no suspicious interval change. IMPRESSION: 1. No mammographic evidence of malignancy. 2. Recommend routine screening mammography in one year. BI-RADS Category 1: Negative Reviewed, dictated and finalized at location A.
== END 2024-02-25 13:37 ==
LOC: MICIMG 13:37
PROVIDERS: PCP Nurse Practitioner Family; Visit Provider Obstetrics & Gynecology
DX: Z12.31 Encounter for screening mammogram for malignant neoplasm of breast (principal)
CPT/HCPCS: 77063; 77067

== ENCOUNTER 2024-05-12 08:12 | Outpatient (CLI) | payer OTHER, SELFPAY ==
[2024-05-12 14:17] LABS: Basophils Absolute Auto 0.1 K/mm3 (0.0-0.1); Basophils Percent Auto 1.3 % (0.2-1.2); Eosinophils Absolute Auto 0.3 K/mm3 (0-0.3); Eosinophils Percent Auto 3.8 % (0-4.4); Hematocrit 39.3 % (37.0-47.0); Hemoglobin 11.9 g/dL (12.0-15.0); Immature Granulocyte Absolute 0.03 K/mm3 (0.00-0.031); Immature Granulocyte Percent A 0.4 % (0-0.5); Immature Platelet Fraction Pct 6.6 % (0.9-11.2); Lymphocytes Absolute Auto 2.07 K/mm3 (0.9-3.2); Lymphocytes Percent Auto 24.8 % (18.3-44.2); Mean Corpuscular HGB Conc 30.3 g/dl (32-36); Mean Corpuscular Hemoglobin 20.5 pg (26-34); Mean Corpuscular Volume 67.8 fl (80-100); Monocytes Absolute Auto 0.5 K/mm3 (0.1-0.6); Monocytes Percent Auto 6.3 % (2.6-8.5); Neutrophils Absolute Auto 5.3 K/mm3 (1.3-6.7); Neutrophils Percent Auto 63.4 % (45.5-73.1); Platelet Count Result 279 k/mm3 (150-375); Red Cell Distribution Width 21.9 % (11.5-14.5); White Blood Count 8.4 K/mm3 (4.5-10.0)
[2024-05-12 14:29] LABS: Alanine Aminotransferase 18 U/L (6-35); Albumin Level 4.2 g/dL (3.5-5.1); Alkaline Phosphatase 105 U/L (38-126); Anion Gap 8 mmol/L (4-12); Aspartate Amino Transferase 49 U/L (14-36); Bilirubin,Total 0.7 mg/dL (0.2-1.3); Blood Urea Nitrogen 23 mg/dL (7-17); Calcium 9.3 mg/dL (8.4-10.2); Carbon Dioxide 28 mmol/L (22-30); Chloride 103 mmol/L (98-107); Cholesterol 167 mg/dL (0-200); Estimated Glomerular Filt Rate > 60; Glucose 94 mg/dL (65-110); HDL Direct 55 mg/dL; Potassium 4.3 mmol/L (3.4-5.0); Sodium 139 mmol/L (137-145); Triglycerides 66 mg/dL (<150)
[2024-05-12 14:40] LABS: LDL Cholesterol Direct 71 mg/dL
[2024-05-12 15:00] LABS: Thyroid Stimulating Hormone 0.231 uIU/mL (0.465-4.680); Total Triiodothyronine (T3) 1.22 NG/ML (0.97-1.69)
[2024-05-12 15:47] LABS: Hemoglobin A1C 5.6 % (<5.7)
[2024-05-12 17:31] LABS: Vitamin D 25 Hydroxy 30.5 ng/mL
[2024-05-12 19:28] LABS: Thyroid Stimulating Hormone Reflex 0.259 uIU/mL (0.465-4.68)
[2024-05-12 19:34] LABS: Free T4 Free Thyroxine 1.24 ng/mL (0.78-2.19)
[2024-05-13 04:20] LABS: Free T4 Free Thyroxine Reflex 1.22 ng/dL (0.78-2.19)
[2024-05-15 11:19] LABS: Thyroid Peroxidase Antibodies <1 IU/mL (<9)
[2024-05-15 14:53] LABS: Thyrotropin Receptor Antibody <1.00 IU/L (< OR = 2.00)
[2024-05-16 16:18] LABS: Thyroid Stimulating Immunoglob <89 % baseline (<140)
== END 2024-05-12 08:13 | disposition home or self-care (01) ==
LOC: ANHGOSHLAB 08:13
PROVIDERS: PCP Family Medicine; Visit Provider Family Medicine
DX: R79.89 Other specified abnormal findings of blood chemistry (principal); E78.5 Hyperlipidemia, unspecified; E53.8 Deficiency of other specified B group vitamins; E55.9 Vitamin D deficiency, unspecified; Z00.00 Encounter for general adult medical examination without abnormal findings; I10 Essential (primary) hypertension; R73.03 Prediabetes
CPT/HCPCS: 36415; 80053; 80061; 82306; 82607; 83036; 83519; 84439; 84443; 84445; 84480; 85025; 85055; 86376; 86800

== ENCOUNTER 2024-09-25 10:19 | Outpatient (CLI) | payer OTHER, SELFPAY ==
[2024-09-25 10:37] LABS: Hematocrit 41.6 % (37.0-47.0); Hemoglobin 12.9 g/dL (12.0-15.0); Immature Platelet Fraction Pct 5.6 % (0.9-11.2); Mean Corpuscular Hemoglobin 20.6 pg (26-34); Mean Corpuscular Volume 66.5 fl (80-100); Platelet Count Result 300 k/mm3 (150-375); Red Blood Count 6.26 M/mm3 (4.2-5.4); Red Cell Distribution Width 21.4 % (11.5-14.5); White Blood Count 7.4 K/mm3 (4.5-10.0)
[2024-09-25 12:47] LABS: Anion Gap 3 mmol/L (4-12); Blood Urea Nitrogen 18 mg/dL (7-17); Carbon Dioxide 32 mmol/L (22-30); Chloride 103 mmol/L (98-107); Estimated Glomerular Filt Rate > 60; Glucose 109 mg/dL (65-110); Potassium 4.4 mmol/L (3.4-5.0); Sodium 138 mmol/L (137-145)
[2024-09-25 13:21] LABS: Iron 134 ug/dL (37-170); Percent Iron Saturation 33 % (20-50)
== END 2024-09-25 10:20 | disposition home or self-care (01) ==
LOC: ANHLAB 10:19
PROVIDERS: PCP Family Medicine; Visit Provider Internal Medicine Hematology & Oncology
DX: D50.9 Iron deficiency anemia, unspecified (principal)
CPT/HCPCS: 36415; 80048; 82728; 83540; 83550; 85027; 85055

== ENCOUNTER 2024-10-14 18:20 | Emergency (ER) | payer OTHER, SELFPAY ==
--- NOTE | 2024-10-14 18:21 | ED.NAVMDI ---
HPI - Nausea/Vomiting/Diarrhea General Stated complaint: DIARRHEA/STOMACH CRAMPS/WANTS WORK RELEASE Time Seen by Provider: 10/14/24 18:29 Source: patient and RN notes reviewed Mode of arrival: ambulatory Limitations: no limitations History of Present Illness HPI Narrative: 54 year old female presents with concern for diarrhea that started on Saturday evening and ended yesterday. She denies fever, aches, chills, sweats. Reports nausea without vomiting. Denies abdominal pain. MD elicited complaint: nausea and diarrhea Related Data Home Medications ?Medication ?Instructions ?Recorded ?Confirmed ?Last Taken ?Type cholecalciferol (vitamin D3) 50 50 mcg PO DAILY 10/27/21 05/11/24 01/16/23 History mcg (2,000 unit) capsule antiarthritic combination no.2 900 1,800 mg PO DAILY 12/28/21 05/11/24 01/16/23 History mg tablet (glucosamine-chondroitin) vitamin B complex (B 1 tablet PO DAILY 11/11/23 05/11/24 Unknown History Complex-Vitamin B12 tablet) Allergies Allergy/AdvReac Type Severity Reaction Status Date / Time No Known Allergies Allergy Verified 10/14/24 18:26 Review of Systems Review of Systems: CONSTITUTIONAL: Denies malaise, chills, sweats, or fever. ENT: Denies rhinorrhea, congestion, sinus pain, otalgia or sore throat. CARDIOVASCULAR: Denies chest pain, palpitations, or edema. RESPIRATORY: Denies cough or dyspnea. GASTROINTESTINAL: Denies abdominal pain, vomiting, bloody, or mucous stools. Reports nausea and diarrhea that has resolved GENITOURINARY: Denies dysuria or hematuria. MUSCULOSKELETAL: Denies myalgia. NEUROLOGIC: Denies headache. All systems reviewed & are unremarkable except as noted in HPI and below PMFSH Past Medical History Medical History Depression Hypertension Perioral dermatitis Prediabetes Right knee DJD Thalassemia Surgical History Surgical History History of colonoscopy History of hysterectomy (~04/2022) History of right knee joint replacement (~01/2023) Family History Family History Father Family history of elevated blood lipids Mother Family history of lung cancer Other Asthma Depression Hypertension Social History Social History Smoking packs per day: 0.5 Smoking cigarettes per day: 10.0 Years smoked: 4 Smoking pack-years: 2.00 Smoking status: Former smoker (quit in 20s) Tobacco type: cigarettes Smoking end date: 04/06/86 Alcohol intake: current Drinks per week: 15 Alcohol use details: STOPPED DRINKING OCTOBER 2021 Substance use: current Substance use type: marijuana Other substance usage details: occasional Last use: 01/19/23 Lack of Transportation: No Lack of Food: Never True Current Housing: I Have Housing Concerned About Future Housing: No Difficulty Paying Gas/Electric Bills: No Difficulty Paying for Meds: No Currently Unemployed: No Education: High School Diploma/GED Difficulty w/ Childcare or Family Care: No Living arrangements: with family Additional living arrangements comments: [facility] Occupation/Education: occupation 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 There is no relevant family history pertinent to the presenting complaint Exam Narrative: GENERAL: Well-appearing, well-nourished, and in no acute distress. HEAD: Normocephalic, atraumatic. EYES: PERRLA, conjunctivae clear, and EOMI. ENT: Nares clear, turbinates pink, no rhinorrhea or epistaxis. Mucous membranes moist. NECK: Supple. No lymphadenopathy CHEST: Speaks in full sentences. No respiratory distress. HEART: Regular rate and rhythm. SKIN: Warm, dry, no rash. NEURO: Alert and oriented x3. PSYCH: Normal mood and affect Course Course Emergency Course: Patient is aware of diagnosis, understands and agrees to treatment plan. Anticipatory guidance given. Patient agrees to follow-up as directed and is aware of reasons to seek care at the emergency department. Portions of this record may have been created with voice recognition software Level of Care: Express Care Visit Vital Signs Vital signs: Reviewed. MDM - Nausea/Vomiting/Diarrhea MDM Narrative Medical decision making narrative: No evidence of pancreatitis, AAA, cholecystitis, choledocholithiasis, cholangitis, mesenteric ischemia, small bowel obstruction, diverticulitis, colitis, appendicitis, or pelvic etiology such as ovarian/testicular torsion, TOA, or ectopic . Patient has no history of peptic ulcer, H. pylori, chronic aspirin NSAID or corticosteroid use, chronic alcohol use, no history of inflammatory bowel disease, no history of active abdominal infection or malignancy. Patient has no history of hernia or intra-abdominal surgeries, patient denies absence of flatus, constipation, melena, hematemesis. Patient denies post-prandial pain. No pain-out of proportion. Exam findings show no acute concerns or changes; patient is non-toxic appearing and is in no distress. Patient is appropriate for outpatient treatment and follow-up. Critical Care Time Critical Care Time Critical Care Time: No Discharge Plan Discharge Clinical Impression: Diarrhea Patient Disposition: Home, Self-Care Condition: Stable Instructions: Acute Diarrhea (ED) Additional Instructions: Stay hydrated. Take small sips of fluid containing electrolytes frequently. You should go to the hospital if you experience return of persistent diarrhea that does not resolve and does not allow you to tolerate any food or fluids, persistent fevers for greater than 2-3 more days, increasing abdominal pain that persists despite medications, persistent diarrhea, dizziness, syncope (fainting), or for any other concerns. Patient Language: Hungarian Prescriptions: No Action glucosamine-chondroitin 900 mg tablet 1,800 mg PO DAILY Patient Comments: 2 tabs/daily vitamin B complex [B Complex-Vitamin B12] Tablet 1 tablet PO DAILY escitalopram oxalate [Lexapro] 20 mg tablet 20 mg PO QAM Qty: 90 3RF irbesartan-hydrochlorothiazide 300-12.5 mg tablet 1 tablet PO HS Qty: 90 3RF cholecalciferol (vitamin D3) 50 mcg (2,000 unit) capsule 50 mcg PO DAILY Follow-up/Referrals: Mendy Garcia MD [Primary Care Provider] - Stand Alone Forms: Work/School Release IP Time of Disposition: 18:36
[2024-10-14 18:31] VITALS: BP 137/68; PULSE 78; RESP 16; TEMP 37.1; O2SAT 97
== END 2024-10-14 18:39 | disposition home or self-care (01) ==
PROVIDERS: Emergency Provider Nurse Practitioner; PCP Family Medicine
DX: R19.7 Diarrhea, unspecified (principal); F32.A Depression, unspecified; I10 Essential (primary) hypertension; R73.03 Prediabetes; M17.11 Unilateral primary osteoarthritis, right knee; D56.9 Thalassemia, unspecified; Z96.651 Presence of right artificial knee joint; Z87.891 Personal history of nicotine dependence; F12.90 Cannabis use, unspecified, uncomplicated
CPT/HCPCS: 99211; G0463

== ENCOUNTER 2024-10-21 15:35 | Outpatient (CLI) | payer OTHER, SELFPAY ==
[2024-10-21 15:51] LABS: Basophils Absolute Auto 0.1 K/mm3 (0.0-0.1); Basophils Percent Auto 0.9 % (0.2-1.2); Eosinophils Absolute Auto 0.4 K/mm3 (0-0.3); Eosinophils Percent Auto 3.8 % (0-4.4); Hematocrit 36.8 % (37.0-47.0); Hemoglobin 11.4 g/dL (12.0-15.0); Immature Granulocyte Absolute 0.06 K/mm3 (0.00-0.031); Immature Granulocyte Percent A 0.5 % (0-0.5); Immature Platelet Fraction Pct 5.3 % (0.9-11.2); Lymphocytes Absolute Auto 2.72 K/mm3 (0.9-3.2); Lymphocytes Percent Auto 24.7 % (18.3-44.2); Mean Corpuscular Hemoglobin 20.5 pg (26-34); Mean Corpuscular Volume 66.1 fl (80-100); Monocytes Absolute Auto 0.6 K/mm3 (0.1-0.6); Monocytes Percent Auto 5.2 % (2.6-8.5); Neutrophils Absolute Auto 7.1 K/mm3 (1.3-6.7); Neutrophils Percent Auto 64.9 % (45.5-73.1); Platelet Count Result 328 k/mm3 (150-375); Red Blood Count 5.57 M/mm3 (4.2-5.4); Red Cell Distribution Width 20.2 % (11.5-14.5)
[2024-10-21 16:35] LABS: Iron 64 ug/dL (37-170)
[2024-10-21 16:39] LABS: Anion Gap 7 mmol/L (4-12); Blood Urea Nitrogen 28 mg/dL (7-17); Calcium 9.6 mg/dL (8.4-10.2); Carbon Dioxide 30 mmol/L (22-30); Chloride 101 mmol/L (98-107); Estimated Glomerular Filt Rate > 60; Glucose 106 mg/dL (65-110); Potassium 4.7 mmol/L (3.4-5.0); Sodium 138 mmol/L (137-145)
[2024-10-21 16:50] LABS: Percent Iron Saturation 19 % (20-50)
== END 2024-10-21 15:36 | disposition home or self-care (01) ==
LOC: ANHLAB 15:36
PROVIDERS: PCP Family Medicine; Visit Provider Internal Medicine Hematology & Oncology
DX: D50.9 Iron deficiency anemia, unspecified (principal)
CPT/HCPCS: 36415; 80048; 82728; 83540; 83550; 85025; 85055

== ENCOUNTER 2025-09-15 10:14 | Outpatient (CLI) | payer OTHER, SELFPAY ==
[2025-09-15 13:12] LABS: Hematocrit 40.5 % (37.0-47.0); Hemoglobin 12.3 g/dL (12.0-15.0); Immature Granulocyte Percent A 0.3 % (0-0.5); Immature Platelet Fraction Pct 5.7 % (0.9-11.2); Lymphocytes Absolute Auto 1.71 K/mm3 (0.9-3.2); Mean Corpuscular HGB Conc 30.4 g/dl (32-36); Mean Corpuscular Hemoglobin 20.2 pg (26-34); Mean Corpuscular Volume 66.6 fl (80-100); Nucleated Red Blood Cells Absolute Auto 0.000 K/mm3 (0.0-0.012); Nucleated Red Blood Cells Perc 0.0 % (0.0-0.2); Platelet Count Result 289 k/mm3 (150-375); Red Blood Count 6.08 M/mm3 (4.2-5.4); White Blood Count 7.5 K/mm3 (4.5-10.0)
[2025-09-15 13:41] LABS: Microcytosis 1+ (NORMAL); Ovalocytes 2+; Schistocytes None Seen; Target Cells Occasional
[2025-09-15 14:44] LABS: Thyroid Stimulating Hormone Reflex 0.358 uIU/mL (0.465-4.68)
[2025-09-15 15:06] LABS: Alanine Aminotransferase 20 U/L (6-35); Albumin Level 4.3 g/dL (3.5-5.1); Alkaline Phosphatase 110 U/L (38-126); Anion Gap 3 mmol/L (4-12); Aspartate Amino Transferase 28 U/L (14-36); Bilirubin,Total 0.8 mg/dL (0.2-1.3); Blood Urea Nitrogen 22 mg/dL (7-17); Calcium 10.0 mg/dL (8.4-10.2); Carbon Dioxide 29 mmol/L (22-30); Chloride 102 mmol/L (98-107); Cholesterol 189 mg/dL (0-200); Estimated Glomerular Filt Rate > 60; Glucose 89 mg/dL (65-110); HDL Direct 59 mg/dL; Magnesium 1.8 mg/dL (1.6-2.3); Potassium 4.3 mmol/L (3.4-5.0); Sodium 134 mmol/L (137-145); Total Protein 7.7 g/dL (6.3-8.2); Triglycerides 89 mg/dL (<150)
[2025-09-15 15:43] LABS: Free T4 Free Thyroxine Reflex 1.15 ng/dL (0.78-2.19)
[2025-09-15 16:00] LABS: Vitamin B12 836.0 pg/mL (239-931)
[2025-09-15 17:01] LABS: Total Triiodothyronine (T3) 1.17 NG/ML (0.82-1.58)
[2025-09-15 18:14] LABS: Hemoglobin A1C 5.4 % (<5.7)
[2025-09-16 09:06] LABS: Iron 84 ug/dL (37-170)
[2025-09-16 09:15] LABS: Percent Iron Saturation 23 % (20-50)
== END 2025-09-15 10:15 | disposition home or self-care (01) ==
LOC: ANHGOSHLAB 10:15
PROVIDERS: PCP Nurse Practitioner Family; Visit Provider Nurse Practitioner Family
DX: R73.03 Prediabetes (principal); I10 Essential (primary) hypertension; E55.9 Vitamin D deficiency, unspecified; R79.89 Other specified abnormal findings of blood chemistry; D50.9 Iron deficiency anemia, unspecified
CPT/HCPCS: 36415; 80053; 80061; 82306; 82607; 83036; 83540; 83550; 83735; 84439; 84443; 84480; 85025; 85055; 86376